=== PATIENT | female | born 1960 | race Caucasian/White ===

== ENCOUNTER 2016-09-13 14:28 | Emergency (ER) | payer MEDICARE, MEDICAID ==
[2016-09-13] MEDS ORDERED: IPRATROPIUM/ALBUTEROL 0.5-2.5 MG/3 ML AMPUL NEB ONE (16:06)
--- NOTE | 2016-09-13 16:06 | ER Document Report ---
ED General - General Chief Complaint: Chest Pain Stated Complaint: CHEST PAIN, RIGHT ARM PAIN Mode of Arrival: Ambulatory Information source: Patient Notes: 56-year-old female history of COPD presents with complaints of chest pain shortness breath while she was working outside in 90 weather. Patient notes it was tender on the right side under her right armpit. Patient symptoms resolved when she was in her conditioning. Denies that she has shortness breath when she ambulates. Denies any fevers or chills TRAVEL OUTSIDE OF THE [place] IN LAST 30 DAYS: No COUNTRY TRAVELED TO/FROM: [facility] Onset: Just prior to arrival Onset/Duration: Sudden Quality of pain: Pressure Severity: Mild Pain Level: 1 Associated symptoms: Chest pain, Shortness of breath Exacerbated by: Denies Relieved by: Denies Similar symptoms previously: Yes Recently seen / treated by doctor: Yes - Related Data Allergies/Adverse Reactions: codeine [Codeine] Allergy (Severe, Verified 09/13/16 15:58) Facial/airway swelling, SOB, rash Sulfa (Sulfonamide Antibiotics) Allergy (Severe, Verified 09/13/16 15:58) Facial/airway swelling, SOB, rash hydrocodone [Hydrocodone] Allergy (Verified 09/13/16 15:58) oxycodone [Oxycodone] Allergy (Verified 09/13/16 15:58) Past Medical History - Social History Smoking Status: Current Every Day Smoker Cigarette use (# per day): Yes Chew tobacco use (# tins/day): No Smoking Education Provided: No Family History: Thyroid Disfunction - Mother Patient has suicidal ideation: No Patient has homicidal ideation: No - Past Medical History Cardiac Medical History: Reports: Hx Congestive Heart Failure - hospitalized x 2 (Mar 2011 & May 2011), Hx Hypertension Denies: Hx Atrial Fibrillation, Hx Coronary Artery Disease, Hx Heart Attack, Hx Hypercholesterolemia, Hx Peripheral Vascular Disease, Hx Pulmonary Embolism, Hx Heart Murmur Pulmonary Medical History: Reports: Hx COPD, Hx Pneumonia - hospitalized x 2, Hx Sleep Apnea Denies: Hx Asthma, Hx Bronchitis, Hx Respiratory Failure, Hx Tuberculosis Neurological Medical History: Reports: Hx Seizures - prior to cerebral aneurysm clipping only. Denies: Hx Cerebrovascular Accident Endocrine Medical History: Reports: Hx Hypothyroidism. Denies: Hx Graves' Disease, Hx Hyperthyroidism Renal/ Medical History: Reports: Hx Kidney Stones - "passed" x 3-4 renal calculi (2006). Denies: Hx End Stage Renal Disease, Hx Ovarian Cysts, Hx Peritoneal Dialysis, Hx Pelvic Inflammatory Disease Malignancy Medical History: Denies: Hx Breast Cancer, Hx Cervical Cancer, Hx Leukemia, Hx Lung Cancer, Hx Ovarian Cancer GI Medical History: Reports: Hx Gastroesophageal Reflux Disease. Denies: Hx Crohn's Disease, Hx Hiatal Hernia, Hx Irritable Bowel, Hx Liver Failure, Hx Ulcer Musculoskeltal Medical History: Reports Hx Arthritis, Denies Hx Fibromyalgia, Denies Hx Multiple Sclerosis, Denies Hx Muscular Dystrophy Psychiatric Medical History: Reports: Hx Bipolar Disorder, Hx Depression Denies: Hx Dementia, Hx Post Traumatic Stress Disorder, Hx Schizophrenia Traumatic Medical History: Reports: Hx Fractures - LEFT wrist Infectious Medical History: Denies: Hx HIV Past Surgical History: Reports: Hx Appendectomy - incidental with open cholecystectomy 1986, Hx Cardiac Catheterization, Hx Section - 2001, Hx Cholecystectomy - open 1986, Hx Hysterectomy - 2001, Hx Neurologic Surgery, Hx Orthopedic Surgery - rigth knee replacement. Denies: Hx Bowel Surgery, Hx Colostomy, Hx Coronary Artery Bypass Graft, Hx Gastric Bypass Surgery, Hx Herniorrhaphy, Hx Mastectomy, Hx Pacemaker, Hx Tonsillectomy, Hx Tubal Ligation - Immunizations Hx Diphtheria, Pertussis, Tetanus Vaccination: Yes Review of Systems - Review of Systems Notes: REVIEW OF SYSTEMS: CONSTITUTIONAL : Denies fever, chills, or sweats. Denies recent illness. EENT: Denies eye, ear, throat, or mouth pain or symptoms. Denies nasal or sinus congestion or discharge. Denies throat, tongue, or mouth swelling or difficulty swallowing. CARDIOVASCULAR: Admits to right-sided chest pain RESPIRATORY: Admits shortness of breath GASTROINTESTINAL: Denies abdominal pain or distention. Denies nausea, vomiting , or diarrhea. Denies blood in vomitus, stools, or per rectum. Denies black, tarry stools. Denies constipation. GENITOURINARY: Denies difficulty urinating, painful urination, burning, frequency, blood in urine, or discharge. FEMALE GENITOURINARY: Denies vaginal bleeding, heavy or abnormal periods, irregular periods. Denies vaginal discharge or odor. MUSCULOSKELETAL: Denies back or neck pain or stiffness. Denies joint pain or swelling. SKIN: Denies rash, lesions or sores. HEMATOLOGIC : Denies easy bruising or bleeding. LYMPHATIC: Denies swollen, enlarged glands. NEUROLOGICAL: Denies confusion or altered mental status. Denies passing out or loss of consciousness. Denies dizziness or lightheadedness. Denies headache. Denies weakness or paralysis or loss of use of either side. Denies problems with gait or speech. Denies sensory loss, numbness, or tingling. Denies seizures. PSYCHIATRIC: Denies anxiety or stress. Denies depression, suicidal ideation, or homicidal ideation. ALL OTHER SYSTEMS REVIEWED AND NEGATIVE. Dictation was performed using [employer] voice recognition software PHYSICAL EXAMINATION: GENERAL: Well-appearing, well-nourished and in no acute distress. HEAD: Atraumatic, normocephalic. EYES: Pupils equal round and reactive to light, extraocular movements intact, conjunctiva are normal. ENT: Nares patent, oropharynx clear without exudates. Moist mucous membranes. NECK: Normal range of motion, supple without lymphadenopathy LUNGS: Faint wheezing on the right upper lobe HEART: Regular rate and rhythm without murmurs ABDOMEN: Soft, nontender, nondistended abdomen. No guarding, no rebound. No masses appreciated. Female : deferred Musculoskeletal: Normal range of motion, no pitting or edema. No cyanosis. NEUROLOGICAL: Cranial nerves grossly intact. Normal speech, normal gait. Normal sensory, motor exams PSYCH: Normal mood, normal affect. SKIN: Warm, Dry, normal turgor, no rashes or lesions noted. Physical Exam - Vital signs Vitals: Temp Pulse Resp BP Pulse Ox 98.3 F 104 H 22 H 126/87 H 92 09/13/16 14:34 09/13/16 14:34 09/13/16 14:34 09/13/16 14:34 09/13/16 14:34 Course - Re-evaluation Re-evalutation: 09/13/16 16:05 I do not expect any life-threatening issues, appears to be COPD related, patient is satting 95% on room air even though it is documented that it's 92%. Patient will be given breathing treatment will be ambulated to see her pulse ox at that time. 09/13/16 17:05 Patient ambulated after breathing treatments satting between 94-96% 09/13/16 17:30 Cardiac enzymes are negative patient otherwise looks well, I do not believe this is cardiac given that it only occurs in the heat After performing a Medical Screening Examination, I estimate there is LOW risk for RUPTURED ESOPHAGUS, PNEUMOTHORAX, PULMONARY EMBOLISM, ACUTE CORONARY SYNDROME, OR THORACIC AORTIC DISSECTION, thus I consider the discharge disposition reasonable. I have reevaluated this patient multiple times and no significant life threatening changes are noted. The patient and I have discussed the diagnosis and risks, and we agree with discharging home with close follow-up. We also discussed returning to the Emergency Department immediately if new or worsening symptoms occur. We have discussed the symptoms which are most concerning (e.g., bloody sputum, worsening pain or shortness of breath) that necessitate immediate return. - Vital Signs Vital signs: Temp Pulse Resp BP Pulse Ox 98.3 F 104 H 22 H 126/87 H 92 09/13/16 14:34 09/13/16 14:34 09/13/16 14:34 09/13/16 14:34 09/13/16 14:34 - Laboratory Result Diagrams: 09/13/16 16:10 09/13/16 16:10 Laboratory results interpreted by me: 09/13/16 16:10 BUN 21 H - Diagnostic Test Radiology reviewed: Image reviewed, Reports reviewed Discharge - Discharge Clinical Impression: Chronic obstructive pulmonary disease (COPD) Qualifiers: COPD type: unspecified COPD Qualified Code(s): J44.9 - Chronic obstructive pulmonary disease, unspecified Disposition: HOME, SELF-CARE Instructions: Chest Pain of Unclear Cause ([facility]) Additional Instructions: Follow up with your physician tomorrow for further care or return to the ED IMMEDIATELY if symptoms worsen or new concerns occur. If you cannot afford to follow up with your primary care physician a list of low cost clinics have been provided at the end of your discharge papers as well.
[2016-09-13] MEDS ORDERED: PREDNISONE 20 MG TABLET PO ONE (16:25)
[2016-09-13 16:40] LABS: ABSOLUTE BASOPHILS # (AUTO) 0.1 10^3/uL (0.0-0.2); ABSOLUTE EOSINOPHILS # (AUTO) 0.4 10^3/uL (0.0-0.6); ABSOLUTE LYMPHOCYTES (AUTO) 2.7 10^3/uL (0.5-4.7); ABSOLUTE MONOCYTES (AUTO) 0.7 10^3/uL (0.1-1.4); ABSOLUTE NEUT (AUTO) 5.7 10^3/uL (1.7-8.2); BASOPHILS % (AUTO) 0.7 % (0-2); EOSINOPHILS % (AUTO) 3.9 % (0-6); HEMATOCRIT 41.1 % (36.0-47.0); HEMOGLOBIN 13.7 g/dL (12.0-15.5); MEAN CORPUSCULAR HGB CONC 33.4 g/dL (32.0-36.0); MEAN CORPUSCULAR VOLUME 90 fl (80-97); MONOCYTES % (AUTO) 7.2 % (3-13); RED BLOOD COUNT 4.57 10^6/uL (3.72-5.28); RED CELL DISTRIBUTION WIDTH 12.6 % (11.5-14.0); SEGMENTED NEUTROPHILS % (AUTO) 60.2 % (42-78); WHITE BLOOD COUNT 9.5 10^3/uL (4.0-10.5)
[2016-09-13 16:54] LABS: ALANINE AMINOTRANSFERASE 31 U/L (9-52); ALBUMIN 4.6 g/dL (3.5-5.0); ALKALINE PHOSPHATASE 89 U/L (38-126); ANION GAP 15 (5-19); ASPARTATE AMINO TRANSFERASE 24 U/L (14-36); BILIRUBIN,DIRECT 0.4 mg/dL (0.0-0.4); BILIRUBIN,TOTAL 0.7 mg/dL (0.2-1.3); BLOOD UREA NITROGEN 21 mg/dL (7-20); CALCIUM 9.8 mg/dL (8.4-10.2); CARBON DIOXIDE 25 mmol/L (22-30); CHLORIDE 103 mmol/L (98-107); CREATINE KINASE 53 U/L (30-135); CREATININE RESULT 0.96 mg/dL (0.52-1.25); GLUCOSE 91 mg/dL (75-110); POTASSIUM 4.2 mmol/L (3.6-5.0); SODIUM 142.7 mmol/L (137-145); TOTAL PROTEIN 8.2 g/dL (6.3-8.2)
[2016-09-13 17:06] LABS: CREATINE KINASE MB 0.43 ng/mL (<4.55)
[2016-09-13 17:08] LABS: TROPONIN I < 0.012 ng/mL
[2016-09-13 17:38] VITALS: BP 119/85
--- NOTE | 2016-09-14 10:21 | EKG REPORT ---
SEVERITY:- ABNORMAL ECG - SINUS RHYTHM BORDERLINE INFERIOR Q WAVES NONSPECIFIC T ABNORMALITIES, DIFFUSE LEADS : Confirmed by: Pranav Roberts 14-Sep-2016 10:21:06
== END 2016-09-13 17:39 | disposition home or self-care (01) ==
LOC: ER 14:28
DX: J44.9 Chronic obstructive pulmonary disease, unspecified (principal); R07.9 Chest pain, unspecified; M79.601 Pain in right arm; F17.210 Nicotine dependence, cigarettes, uncomplicated
CPT/HCPCS: 93005; 94640; 99285; 36415; 82553; 82550; 85025; 80053; 84484; 71020; 93010; A9270 ×2; J7512; J7620

== ENCOUNTER 2017-03-29 16:31 | Emergency (ER) | payer MEDICARE, MEDICAID ==
--- NOTE | 2017-03-29 18:37 | ER Document Report ---
ED Headache - General Chief Complaint: Headache Stated Complaint: HEADACHE Time Seen by Provider: 03/29/17 18:37 Notes: The patient is a 56-year-old female, past medical history frequent headaches, presents with several weeks of her usual headache is worsening over the past 2 days. She took ibuprofen with some relief of her headaches. Patient also was scratched in her hands by her puppy is feeling some tingling at the site, but denies fevers, redness, open wounds, chest pain, shortness of breath, blurry vision, focal weakness, numbness, tingling, ataxia or abdominal pain. TRAVEL OUTSIDE OF THE [place] IN LAST 30 DAYS: No - Related Data Allergies/Adverse Reactions: codeine [Codeine] Allergy (Severe, Verified 03/29/17 17:47) Facial/airway swelling, SOB, rash Sulfa (Sulfonamide Antibiotics) Allergy (Severe, Verified 03/29/17 17:47) Facial/airway swelling, SOB, rash hydrocodone [Hydrocodone] Allergy (Verified 03/29/17 17:47) oxycodone [Oxycodone] Allergy (Verified 03/29/17 17:47) Past Medical History - General Information source: Patient - Social History Smoking Status: Unknown if Ever Smoked Chew tobacco use (# tins/day): No Frequency of alcohol use: None Drug Abuse: None Family History: Thyroid Disfunction - Mother Patient has suicidal ideation: No Patient has homicidal ideation: No - Past Medical History Cardiac Medical History: Reports: Hx Congestive Heart Failure - hospitalized x 2 (Mar 2011 & May 2011), Hx Hypertension Denies: Hx Atrial Fibrillation, Hx Coronary Artery Disease, Hx Heart Attack, Hx Hypercholesterolemia, Hx Peripheral Vascular Disease, Hx Pulmonary Embolism, Hx Heart Murmur Pulmonary Medical History: Reports: Hx COPD, Hx Pneumonia - hospitalized x 2, Hx Sleep Apnea Denies: Hx Asthma, Hx Bronchitis, Hx Respiratory Failure, Hx Tuberculosis Neurological Medical History: Reports: Hx Seizures - prior to cerebral aneurysm clipping only. Denies: Hx Cerebrovascular Accident Endocrine Medical History: Reports: Hx Hypothyroidism. Denies: Hx Graves' Disease, Hx Hyperthyroidism Renal/ Medical History: Reports: Hx Kidney Stones - "passed" x 3-4 renal calculi (2006). Denies: Hx End Stage Renal Disease, Hx Ovarian Cysts, Hx Peritoneal Dialysis, Hx Pelvic Inflammatory Disease Malignancy Medical History: Denies: Hx Breast Cancer, Hx Cervical Cancer, Hx Leukemia, Hx Lung Cancer, Hx Ovarian Cancer GI Medical History: Reports: Hx Gastroesophageal Reflux Disease. Denies: Hx Crohn's Disease, Hx Hiatal Hernia, Hx Irritable Bowel, Hx Liver Failure, Hx Pancreatitis, Hx Ulcer Musculoskeltal Medical History: Reports Hx Arthritis, Denies Hx Fibromyalgia, Denies Hx Multiple Sclerosis, Denies Hx Muscular Dystrophy Psychiatric Medical History: Reports: Hx Bipolar Disorder, Hx Depression Denies: Hx Dementia, Hx Post Traumatic Stress Disorder, Hx Schizophrenia Traumatic Medical History: Reports: Hx Fractures - LEFT wrist Infectious Medical History: Denies: Hx HIV Past Surgical History: Reports: Hx Appendectomy - incidental with open cholecystectomy 1986, Hx Cardiac Catheterization, Hx Section - 2001, Hx Cholecystectomy - open 1986, Hx Hysterectomy, Hx Neurologic Surgery, Hx Orthopedic Surgery - rigth knee replacement. Denies: Hx Bowel Surgery, Hx Colostomy, Hx Coronary Artery Bypass Graft, Hx Gastric Bypass Surgery, Hx Herniorrhaphy, Hx Mastectomy, Hx Pacemaker, Hx Tonsillectomy, Hx Tubal Ligation - Immunizations Hx Diphtheria, Pertussis, Tetanus Vaccination: Yes Review of Systems - Review of Systems Notes: REVIEW OF SYSTEMS: CONSTITUTIONAL: -fevers, -chills EENT: -eye pain, -difficulty swallowing, -nasal congestion CARDIOVASCULAR:-chest pain, -syncope. RESPIRATORY: -cough, -SOB GASTROINTESTINAL: -abdominal pain, -nausea, -vomiting, -diarrhea GENITOURINARY: -dysuria, -hematuria MUSCULOSKELETAL: -back pain, -neck pain SKIN: -rash or skin lesions. HEMATOLOGIC: -easy bruising or bleeding. LYMPHATIC: -swollen, enlarged glands. NEUROLOGICAL: -altered mental status or loss of consciousness, +headache PSYCHIATRIC: -anxiety, -depression. ALL OTHER SYSTEMS REVIEWED AND NEGATIVE. Physical Exam - Vital signs Vitals: Temp Pulse Resp BP Pulse Ox 98.0 F 72 16 144/110 H 94 03/29/17 16:34 03/29/17 16:34 03/29/17 16:34 03/29/17 16:34 03/29/17 16:34 - Notes Notes: PHYSICAL EXAMINATION: GENERAL: Well-appearing, well-nourished and in no acute distress. HEAD: Atraumatic, normocephalic. EYES: Pupils equal round and reactive to light, extraocular movements intact, sclera anicteric, conjunctiva are normal. ENT: nares patent, oropharynx clear without exudates. Moist mucous membranes. NECK: Normal range of motion, supple without lymphadenopathy LUNGS: Breath sounds clear to auscultation bilaterally and equal. No wheezes rales or rhonchi. HEART: Regular rate and rhythm without murmurs ABDOMEN: Soft, nontender, normoactive bowel sounds. No guarding, no rebound. No masses appreciated. EXTREMITIES: Normal range of motion, no pitting or edema. No cyanosis. NEUROLOGICAL: Cranial nerves grossly intact. Normal speech, normal gait. Normal sensory and motor exams. PSYCH: Normal mood, normal affect. SKIN: Warm, Dry, normal turgor, no rashes or lesions noted. Course - Re-evaluation Re-evalutation: Patient's headache is exactly the same as her prior ones. Do not suspect meningitis, ICH or SAH at this time. We will treat her with a headache cocktail and reassess. She has no signs of infection of her hands where she was scratched and there are no focal neuro deficits. 03/29/17 20:08 Pt's headache completely resolved after headache cocktail and her repeat neuro exam is completely normal. Instructed her to follow-up with her primary care physician and take anti-inflammatories to help prevent a rebound headache. Given strict return precautions and she understands. - Vital Signs Vital signs: Temp Pulse Resp BP Pulse Ox 98.0 F 72 16 144/110 H 94 03/29/17 16:34 03/29/17 16:34 03/29/17 16:34 03/29/17 16:34 03/29/17 16:34 Discharge - Discharge Clinical Impression: Headache Qualifiers: Headache type: unspecified Headache chronicity pattern: chronic headache Intractability: not intractable Qualified Code(s): R51 - Headache Condition: Stable Disposition: HOME, SELF-CARE Additional Instructions: HEADACHE: The physician does not feel that the headache you are experiencing has a serious underlying cause. Most headaches are due to emotional stress, with resultant muscle tension (tension headache). Occasionally, headaches are secondary to changes in the blood vessels of the scalp (vascular headache and migraine headache). Sometimes, a headache is the first symptom of another developing illness, such as a viral infection. You have no evidence of stroke, bleeding, meningitis, or other serious cause of your headache. The treatment of headaches varies with the severity and cause of the pain. Not all headaches need pain shots. In fact, there is evidence that using narcotics for headaches may make them worse in the long run. The physician will determine the therapy that's in your best interest. If you develop a fever, if the headache is different from any you've previously experienced, or if the headache progressively worsens, then call your physician at once or go to the emergency room. REGLAN (METOCLOPRAMIDE): Reglan has been prescribed. This medicine affects the stomach and intestines. It can be used to treat nausea and vomiting, to prevent reflux of stomach acid up into the esophagus, or to increase the contractions of the stomach and intestines. It is often prescribed for esophagitis, and for paralysis of the stomach in diabetics. Reglan can cause either mild restlessness or drowsiness. You should contact the doctor at once if you become extremely restless, anxious, or cannot sleep, or if you develop uncontrollable motions of the lips, tongue, or jaw. Do not take alcohol with this medicine. Do not drive or operate machinery until you have been taking this medicine long enough to know how it affects you. Call the doctor if you develop abdominal pains, lightheadedness, black stool, or blood in the stool or vomitus. USE OF DIPHENHYDRAMINE: Diphenhydramine (Benadryl) is an antihistamine and has been recommended to help treat your headache and to prevent side effects of other medications used to treat headaches. The medication can be repeated four times daily. Age Elixir (12.5 mg/tsp) 25 mg pill adult 1-2 tabs Antihistamines may cause drowsiness, especially with the first dose. Do not operate machinery or drive while under the effects of the medication. Do not combine the medication with alcohol, or with any other medication without talking to your doctor. ANTINAUSEA MEDICATION: You have been given a medication to suppress nausea and vomiting. This type of medication can be given as a shot, pill, or suppository. It will usually last for many hours. Pills and shots usually last six to eight hours, suppositories last about 12 hours. For the typical illness, only one or two doses of the medication may be necessary. Mild lightheadedness may occur. This type of medicine can cause drowsiness. Do not drive or operate dangerous machinery while under its influence. Do not mix with alcohol. See your doctor at once if you have muscle spasms or tightness, or uncontrollable motions (particularly of the neck, mouth, or jaw). Persistent vomiting or severe lightheadedness should also be evaluated by the physician. TORADOL INJECTION: You have been given an injection of ketorolac tromethamine (Toradol). This is an excellent, safe drug for pain control. It also has potent antiinflammatory action. You should have significant pain relief within about one hour. Toradol is not addicting and is non-sedating. It does not interfere with driving or work. Call or return if you develop itching, hives, shortness of breath, or rash. FOLLOW-UP CARE: If you have been referred to a physician for follow-up care, call the physician s office for an appointment as you were instructed or within the next two days. If you experience worsening or a significant change in your symptoms, notify the physician immediately or return to the Emergency Department at any time for re-evaluation. Forms: Elevated Blood Pressure Referrals: ERMIAS LEY PA-C [Primary Care Provider] - Follow up as needed
[2017-03-29] MEDS ORDERED: METOCLOPRAMIDE HCL INJ/PF 10 MG/2 ML SDV IV ONE (18:46)
[2017-03-29] MEDS ORDERED: NORMAL SALINE 1000 ML 1,000 ML IV ONE (18:46)
[2017-03-29] MEDS ORDERED: DIPHENHYDRAMINE HCL 50 MG/ML VIAL IV ONE (18:46)
[2017-03-29] MEDS ORDERED: KETOROLAC TROMETHAMINE INJ/PF 30 MG/1 ML SDV IV ONE (18:46)
[2017-03-29 20:13] VITALS: BP 131/77
== END 2017-03-29 20:10 | disposition home or self-care (01) ==
LOC: ER 16:31
DX: R51 Headache (principal); R20.2 Paresthesia of skin; Z88.5 Allergy status to narcotic agent; Z88.2 Allergy status to sulfonamides; J44.9 Chronic obstructive pulmonary disease, unspecified
CPT/HCPCS: 99283; 96374; 96375; J1200; J1885; J2765; J7030

== ENCOUNTER 2017-08-04 11:43 | Emergency (ER) | payer MEDICARE, MEDICAID ==
--- NOTE | 2017-08-04 12:43 | ER Document Report ---
ED Hip Pain/Injury - General Chief Complaint: Hip Pain Stated Complaint: LEFT KNEE PAIN Time Seen by Provider: 08/04/17 12:17 Mode of Arrival: Wheelchair Information source: Patient Notes: 57-year-old female presents to ED for complaint of left hip pain. She states she has chronic left hip and knee pain and is been going to physical therapy. She states that she stepped wrong on her foot yesterday and the pain has become back is worse than when she has been going to therapy. She went to therapy yesterday but is not able to go to day she can only go twice a week. Gave to the ER to see if she reinjured her hip. TRAVEL OUTSIDE OF THE [place] IN LAST 30 DAYS: No COUNTRY TRAVELED TO/FROM: [facility] Patient complains to provider of: Pain, Hip, Thigh Occurred: Yesterday - She has chronic pain Where: Home Onset/Duration: Persistent Quality of pain: Sharp, Throbbing Severity: Severe Pain Level: 5 Context: Other - Stepped wrong Symptoms prior to fall: None Symptoms since fall: None Skin Color: Normal Rotation of extremity: None Pain with palpation of the pelvis: Yes Associated Symptoms: None Other injuries: LLE - Related Data Allergies/Adverse Reactions: codeine [Codeine] Allergy (Severe, Verified 08/04/17 12:27) Facial/airway swelling, SOB, rash Sulfa (Sulfonamide Antibiotics) Allergy (Severe, Verified 08/04/17 12:27) Facial/airway swelling, SOB, rash hydrocodone [Hydrocodone] Allergy (Verified 08/04/17 12:27) oxycodone [Oxycodone] Allergy (Verified 08/04/17 12:27) Past Medical History - General Information source: Patient - Social History Smoking Status: Never Smoker Cigarette use (# per day): No Chew tobacco use (# tins/day): No Smoking Education Provided: No Frequency of alcohol use: None Drug Abuse: None Lives with: Family Family History: Thyroid Disfunction - Mother Patient has suicidal ideation: No Patient has homicidal ideation: No - Past Medical History Cardiac Medical History: Reports: Hx Congestive Heart Failure - hospitalized x 2 (Mar 2011 & May 2011), Hx Hypertension Pulmonary Medical History: Reports: Hx COPD, Hx Pneumonia - hospitalized x 2, Hx Sleep Apnea EENT Medical History: Reports: None Neurological Medical History: Reports: Hx Migraine, Hx Seizures - prior to cerebral aneurysm clipping only Endocrine Medical History: Reports: Hx Hypothyroidism Renal/ Medical History: Reports: Hx Kidney Stones - "passed" x 3-4 renal calculi (2006) Malignancy Medical History: Reports: None GI Medical History: Reports: Hx Gastritis, Hx Gastroesophageal Reflux Disease, Hx Irritable Bowel, Hx Colonoscopy, Hx Endoscopy Musculoskeltal Medical History: Reports Hx Arthritis, Reports Hx Musculoskeletal Deformity, Reports Hx Musculoskeletal Trauma Skin Medical History: Reports None Psychiatric Medical History: Reports: Hx Anxiety, Hx Attention Deficit Hyperactivity Disorder, Hx Bipolar Disorder, Hx Depression Traumatic Medical History: Reports: Hx Fractures - LEFT wrist Infectious Medical History: Reports: None Past Surgical History: Reports: Hx Appendectomy - incidental with open cholecystectomy 1986, Hx Cardiac Catheterization, Hx Section - 2001, Hx Cholecystectomy - open 1986, Hx Hysterectomy, Hx Neurologic Surgery, Hx Orthopedic Surgery - rigth knee replacement - Immunizations Hx Diphtheria, Pertussis, Tetanus Vaccination: Yes Review of Systems - Review of Systems Constitutional: No symptoms reported EENT: No symptoms reported Cardiovascular: No symptoms reported Respiratory: No symptoms reported Gastrointestinal: No symptoms reported Genitourinary: No symptoms reported Female Genitourinary: No symptoms reported Musculoskeletal: Joint pain - left hip and thigh pain, Joint swelling - Left hip and thigh pain Skin: No symptoms reported Hematologic/Lymphatic: No symptoms reported Neurological/Psychological: No symptoms reported -: Yes All other systems reviewed and negative Physical Exam - Vital signs Vitals: Temp Pulse Resp BP Pulse Ox 97.8 F 73 16 128/93 H 98 08/04/17 11:47 08/04/17 11:47 08/04/17 11:47 08/04/17 11:47 08/04/17 11:47 Interpretation: Normal - General General appearance: Appears well, Alert - HEENT Head: Normocephalic, Atraumatic Eyes: Normal Pupils: PERRL - Respiratory Respiratory status: No respiratory distress Chest status: Nontender Breath sounds: Normal Chest palpation: Normal - Cardiovascular Rhythm: Regular Heart sounds: Normal auscultation Murmur: No - Abdominal Inspection: Normal Distension: No distension Bowel sounds: Normal Tenderness: Nontender Organomegaly: No organomegaly - Back Back: Normal, Nontender - Extremities General upper extremity: Normal inspection, Nontender, Normal color, Normal ROM , Normal temperature General lower extremity: Normal color, Normal temperature. No: Hubert's sign Hip: Tender, Pain with ROM, Unable to bear weight. No: Abrasion, Deformity, Dislocation, Ecchymosis, Instability, Laceration - Neurological Neuro grossly intact: Yes Cognition: Normal Orientation: AAOx4 Audrey Coma Scale Eye Opening: Spontaneous Audrey Coma Scale Verbal: Oriented Audrey Coma Scale Motor: Obeys Commands Porter Coma Scale Total: 15 Speech: Normal Motor strength normal: LUE, RUE, LLE, RLE Sensory: Normal - Psychological Associated symptoms: Normal affect, Normal mood - Skin Skin Temperature: Warm Skin Moisture: Dry Skin Color: Normal Course - Re-evaluation Re-evalutation: 08/04/17 22:10 X-ray results showed a degenerative disc disease. Otherwise x-ray was negative. Written report given to patient to follow-up with primary doctor. Patient was treated with Toradol Decadron and Flexeril in the emergency room for her pain and discomfort. Patient was discharged home with instructions to follow-up with her primary doctor. - Vital Signs Vital signs: Temp Pulse Resp BP Pulse Ox 97.8 F 74 16 130/98 H 97 08/04/17 11:47 08/04/17 14:36 08/04/17 11:47 08/04/17 14:36 08/04/17 14:36 - Diagnostic Test Radiology reviewed: Image reviewed, Reports reviewed Discharge - Discharge Clinical Impression: Hip pain, left Condition: Stable Disposition: HOME, SELF-CARE Additional Instructions: LOW BACK PAIN: Three out of every four people will have an episode of disabling back pain during their lifetime. Most commonly the pain is due to straining of the muscles and ligaments in the low back. Usual treatment includes: (1) Rest on a firm surface. Avoid lying on your stomach. (2) Ice pack the painful area. After a few days, gentle heat may be used intermittently to relax the area, or ice packs can be continued. (3) Medication may be needed -- muscle relaxers and antiinflammatory medicines are commonly used. (4) As the back improves, exercises are prescribed to strengthen the back and abdominal muscles. Your doctor will advise you on the proper care for your back at each stage in your recovery. You may be better in a few days -- or healing may take several weeks. If new symptoms of a "herniated disc" (radiation of pain, numbness, or tingling down the back of the leg or weakness in the leg) occur, you should be re-examined. Further testing may be necessary. You also seen for chroni left hip pain. Your x-ray is negative. There is some moderate degenerative disc disease in your L-spine. You have been treated with Toradol, Decadron, and Flexeril in the emergency room. Toradol as an anti- inflammatory Decadron is a steroid and Flexeril as a muscle relaxer. MUSCLE RELAXERS: Muscle relaxing medications are usually prescribed for acute muscle spasm or injury to the neck and back. They are often combined with antiinflammatory pain medication for increased relief. You may stop the muscle relaxer when the pain and stiffness have improved. Start the medication again if spasms recur. Muscle relaxers may cause drowsiness, especially with the first dose. Do not operate machinery or drive while under the effects of the medication. Most muscle relaxers last up to 24 hours. Do not combine the medication with alcohol. ICE PACKS: Apply ice packs frequently against the painful area. Many different schedules are recommended, such as "20 minutes on, 20 minutes off" or "one hour ice, two hours rest." If you need to work, you may need to go longer between ice treatments. You should plan to have the area ice packed AT LEAST one fourth of the time. The ice should be applied over the wrap, tape, or splint, or over a layer of cloth -- not directly against the skin. Some ice bags have a built-in cloth and can be put directly on the skin. WARM PACKS: After approximately two days, apply gentle heat (such as a heating pad or hot water bottle) for about 20 to 30 minutes about every two hours -- at least four times daily. Warmth and elevation will help you make a more rapid recovery , and will ease the pain considerably. Do not use HOT heat, and never apply heat for longer than 30 minutes. The continuous heat can invisibly damage skin and muscles -- even when no burn is seen on the surface. Damaged muscles can make you MORE sore. Toradol Injection You have been given an injection of ketorolac tromethamine (Toradol). This is an excellent, safe drug for pain control. It also has potent antiinflammatory action. You should have significant pain relief within about one hour. Toradol is not addicting and is non-sedating. It does not interfere with driving or work. Call or return if you develop itching, hives, shortness of breath, or rash. STEROID MEDICATION: You have been given an injection of medicine of the cortisone/steroid class. This medication is used to control inflammation or allergy. It is often continued as a pill for a short period of time, until the acute process subsides. There are usually no side effects from short-term use of cortisone-like medications. Some persons feel an increased sense of well-being and are not sleepy at bedtime. Long-term use of cortisone medications is best avoided, unless required for a severe condition. If your condition does not remit, or relapses after the course of corticosteroid medication, you should consult your physician. Stretching Exercises for the Back The physician has recommended that you begin stretching exercises for your back. These are often used even while the back is painful. However, you should notify the physician if the activities seem to increase your pain. PELVIC TILT: Lie flat on your back with knees bent. Tighten your stomach and buttock muscles so it flattens your lower back against the floor. Hold 10 seconds. Repeat 10 times, twice daily. KNEE RAISE: Lying on the back with knees bent, raise one knee to your chest, then the other. Hold both knees against the chest 10 seconds, then lower one knee at a time. Repeat 10 times, twice daily. PARTIAL TRUNK RAISE: Lie face down, arms at your sides. Keeping your waist on the floor, use your arms raise your chest up. Support yourself on your elbows for 30 seconds. Repeat twice daily, increasing the time to two minutes as you recover. FOLLOW-UP CARE: If you have been referred to a physician for follow-up care, call the physician s office for an appointment as you were instructed or within the next two days. If you experience worsening or a significant change in your symptoms, notify the physician immediately or return to the Emergency Department at any time for re-evaluation. Prescriptions: Cyclobenzaprine HCl [Flexeril 10 mg Tablet] 10 mg PO TIDP PRN #15 tab PRN Reason: Forms: Parent Work Note Referrals: ERMIAS LEY PA-C [Primary Care Provider] - Follow up as needed DELIA CORTÉS MD [ACTIVE STAFF] - Follow up as needed
--- NOTE | 2017-08-04 13:55 | RADIOLOGY REPORT (SQ) ---
EXAM DESCRIPTION: HIP LEFT AP/LATERAL COMPLETED DATE/TIME: 08/04/2017 1:26 pm REASON FOR STUDY: pain unable to ambulate COMPARISON: None. NUMBER OF VIEWS: Two views. TECHNIQUE: AP pelvis and additional frog-leg view of the left hip. LIMITATIONS: None. FINDINGS: MINERALIZATION: Normal. LEFT HIP: No fracture or dislocation. No worrisome bone lesions. No contour deformity. No joint spa ce narrowing. RIGHT HIP: No fracture or dislocation. No worrisome bone lesions. PUBIS AND ISCHIUM: No fracture. PELVIS: No fracture. SACRUM: No fracture or dislocation. No worrisome bone lesions. LOWER LUMBAR SPINE: Moderate to severe disc degeneration L4-L5 SOFT TISSUES: No findings. OTHER: No other significant finding. IMPRESSION: No significant hip pathology. Moderate disc degeneration L4-L5. TECHNICAL DOCUMENTATION: JOB ID: [id number] [employer]- All Rights Reserved Reading location - IP/workstation name: [email or web address]
[2017-08-04] MEDS ORDERED: DEXAMETHASONE SOD PHOS INJ 10 MG/1 ML VIAL IM ONE (14:15)
[2017-08-04] MEDS ORDERED: KETOROLAC TROMETHAMINE 60 MG/2 ML SDV IM ONE (14:15)
[2017-08-04] MEDS ORDERED: CYCLOBENZAPRINE HCL 10 MG TABLET PO ONE (14:15)
[2017-08-04 14:38] VITALS: BP 130/98
== END 2017-08-04 14:39 | disposition home or self-care (01) ==
LOC: ER 11:43
DX: G89.29 Other chronic pain (principal); M25.552 Pain in left hip; M25.562 Pain in left knee; M51.36 Other intervertebral disc degeneration, lumbar region; I10 Essential (primary) hypertension; J44.9 Chronic obstructive pulmonary disease, unspecified; Z88.5 Allergy status to narcotic agent; Z88.2 Allergy status to sulfonamides
CPT/HCPCS: 99283; 96372; A9270; J1885; J1100

== ENCOUNTER 2017-08-08 09:32 | Emergency (ER) | payer MEDICARE, MEDICAID ==
[2017-08-08] MEDS ORDERED: KETOROLAC TROMETHAMINE 60 MG/2 ML SDV IM ONE (09:52)
--- NOTE | 2017-08-08 09:52 | ER Document Report ---
ED General Pain - General Mode of Arrival: Wheelchair Information source: Patient TRAVEL OUTSIDE OF THE [place] IN LAST 30 DAYS: No COUNTRY TRAVELED TO/FROM: [facility] Patient complains to provider of: Left Buttock and leg pain Onset: Other - 3 weeks ago Context: Other - see notes above Associated symptoms: Other - see notes above Exacerbated by: Walking - General Chief Complaint: Low Back Pain Stated Complaint: BACK PAIN Time Seen by Provider: 08/08/17 09:36 Notes: 57 year old female with history of hypertension presents to the ED complaining of left buttock pain that radiates down to her left knee that started 3 weeks ago. Patient was working in her yard and felt a pinch to the left buttock when going to pull something. Patient reports that she is having difficulty walking secondary to the pain. Patient was seen in the ED 3 days ago and states the pain has worsened since then. Patient has tried exercises, heat and ice packs, and Flexeril to no relief. Patient additionally complains of a burning sensation to the left buttock that radiates down to the left medial knee. Patient denies difficulty with urination or bowel movements. PCP: Pancho Richards (LOPEZAMI VELAZQUEZ) - Related Data Allergies/Adverse Reactions: codeine [Codeine] Allergy (Severe, Verified 08/04/17 12:27) Facial/airway swelling, SOB, rash Sulfa (Sulfonamide Antibiotics) Allergy (Severe, Verified 08/04/17 12:27) Facial/airway swelling, SOB, rash hydrocodone [Hydrocodone] Allergy (Verified 08/04/17 12:27) oxycodone [Oxycodone] Allergy (Verified 08/04/17 12:27) Past Medical History - General Information source: Patient - Social History Smoking Status: Current Every Day Smoker Family History: Thyroid Disfunction - Mother Patient has suicidal ideation: No Patient has homicidal ideation: No - Past Medical History Cardiac Medical History: Reports: Hx Congestive Heart Failure - hospitalized x 2 (Mar 2011 & May 2011), Hx Hypertension Denies: Hx Atrial Fibrillation, Hx Heart Attack, Hx Hypercholesterolemia Pulmonary Medical History: Reports: Hx COPD, Hx Pneumonia - hospitalized x 2, Hx Sleep Apnea Denies: Hx Asthma, Hx Bronchitis, Hx Tuberculosis Neurological Medical History: Reports: Hx Migraine, Hx Seizures - prior to cerebral aneurysm clipping only Endocrine Medical History: Reports: Hx Hypothyroidism Renal/ Medical History: Reports: Hx Kidney Stones - "passed" x 3-4 renal calculi (2006). Denies: Hx End Stage Renal Disease, Hx Peritoneal Dialysis GI Medical History: Reports: Hx Gastritis, Hx Gastroesophageal Reflux Disease, Hx Irritable Bowel, Hx Colonoscopy, Hx Endoscopy. Denies: Hx Hiatal Hernia, Hx Ulcer Musculoskeltal Medical History: Reports Hx Arthritis, Reports Hx Musculoskeletal Deformity, Reports Hx Musculoskeletal Trauma Psychiatric Medical History: Reports: Hx Anxiety, Hx Attention Deficit Hyperactivity Disorder, Hx Bipolar Disorder, Hx Depression Denies: Hx Schizophrenia Traumatic Medical History: Reports: Hx Fractures - LEFT wrist Past Surgical History: Reports: Hx Appendectomy - incidental with open cholecystectomy 1986, Hx Cardiac Catheterization, Hx Section - 2001, Hx Cholecystectomy - open 1986, Hx Hysterectomy, Hx Neurologic Surgery, Hx Orthopedic Surgery - rigth knee replacement. Denies: Hx Bowel Surgery, Hx Mastectomy, Hx Tonsillectomy, Hx Tubal Ligation - Immunizations Hx Diphtheria, Pertussis, Tetanus Vaccination: Yes Review of Systems - Review of Systems Constitutional: No symptoms reported EENT: No symptoms reported Cardiovascular: No symptoms reported Respiratory: No symptoms reported Gastrointestinal: No symptoms reported Genitourinary: No symptoms reported Female Genitourinary: No symptoms reported Musculoskeletal: See HPI, Other - left buttock to left knee pain Skin: No symptoms reported Hematologic/Lymphatic: No symptoms reported Neurological/Psychological: See HPI, Other - burning sensation from left buttock to left knee -: Yes All other systems reviewed and negative Physical Exam - Vital signs Vitals: Temp Pulse Resp BP Pulse Ox 97.4 F 78 18 118/80 96 08/08/17 09:53 08/08/17 09:53 08/08/17 09:53 08/08/17 09:53 08/08/17 09:53 - Notes Notes: GENERAL: Alert, interacts well. No acute distress. HEAD: Normocephalic, atraumatic. EYES: Pupils equal, round, and reactive to light. Extraocular movements intact. ENT: Oral mucosa moist, tongue midline. NECK: Full range of motion. Supple. Trachea midline. LUNGS: Clear to auscultation bilaterally, no wheezes, rales, or rhonchi. No respiratory distress. HEART: Regular rate and rhythm. No murmurs, gallops, or rubs. EXTREMITIES: Moves all 4 extremities spontaneously. No edema, radial and dorsalis pedis pulses 2/4 bilaterally. No cyanosis. Pain along the left sciatica nerve. Great toe strength intact, bilaterally. Able to raise left lower extremity with some pain. Normal lower extremity muscle strength. NEUROLOGICAL: Alert and oriented x3. Normal speech. PSYCH: Normal affect, normal mood. SKIN: Warm, dry, normal turgor. No rashes or lesions noted. (AMI LOPEZ) Course - Re-evaluation Re-evalutation: 08/08/17 10:20 No red flag symptoms, no bowel or bladder dysfunction, negative straight leg raising test, there is passive full range of motion, this is much more muscular than it is spinal nerve related, she does have evidence of muscle spasm in her gluteal muscles that are pinching on the sciatic nerve, patient will be given Robaxin and shot of Toradol here and then discharged home with Robaxin by mouth. Patient has been observed for approximately 20 minutes and is feeling better at this point. Counseled on cauda equina symptoms and will return for any of those. (ALYSSA GRIGSBY) - Vital Signs Vital signs: Temp Pulse Resp BP Pulse Ox 97.7 F 73 17 113/74 96 08/08/17 10:33 08/08/17 10:33 08/08/17 10:33 08/08/17 10:33 08/08/17 10:33 Discharge - Discharge Clinical Impression: Sciatica of left side Condition: Stable Disposition: HOME, SELF-CARE Instructions: Sciatica ([facility]) Prescriptions: Methocarbamol [Robaxin 750 mg Tablet] 750 mg PO ASDIR PRN #40 tablet PRN Reason: Referrals: ALFONSO HARDY MD [ACTIVE STAFF] - Follow up as needed Scribe Attestation: 08/08/17 12:42 I personally performed the services described in the documentation, reviewed and edited the documentation which was dictated to the scribe in my presence, and it accurately records my words and actions. (ALYSSA GRIGSBY) Scribe Documentation - Scribe Written by Scribe:: Leeroy Zavala, 08/08/2017 1048 acting as scribe for :: Juan Antonio
[2017-08-08] MEDS ORDERED: METHOCARBAMOL 750 MG TABLET PO ONE (09:53)
[2017-08-08 10:38] VITALS: BP 113/74
== END 2017-08-08 10:35 | disposition home or self-care (01) ==
LOC: ER 09:32
DX: M54.32 Sciatica, left side (principal); I10 Essential (primary) hypertension; F17.200 Nicotine dependence, unspecified, uncomplicated; J44.9 Chronic obstructive pulmonary disease, unspecified; Z88.5 Allergy status to narcotic agent; Z88.2 Allergy status to sulfonamides
CPT/HCPCS: 99283; 96372; J1885; A9270; J3490

== ENCOUNTER 2017-08-09 11:36 | Emergency (ER) | payer MEDICARE, MEDICAID ==
[2017-08-09] MEDS ORDERED: FENTANYL CITRATE INJ/PF 100 MCG/2 ML AMPUL IM ONE (11:59)
--- NOTE | 2017-08-09 12:01 | ER Document Report ---
ED Medical Screen (RME) - General Chief Complaint: Hip Pain Stated Complaint: LEFT HIP PAIN Time Seen by Provider: 08/09/17 11:52 Notes: RME DISCLOSURE I have seen this patient as part of a Rapid Medical Evaluation and, if applicable, placed any initially appropriate orders. The patient will be seen and fully evaluated, including a full history and physical exam, by a provider ( in Main ED or Fast Track) when a room becomes available. 57-year-old female seen several times in the past few days for arthralgias here again for left hip pain. She had a negative hip x-ray at 1 of her recent visits and was prescribed methocarbamol which she reports is not helping. She reports she is now not able to walk without having significant pain. Pain is worse with standing and walking. Pain is improved with minimizing movement. She denies any flash incontinence. She denies any numbness tingling. EXAM Tenderness to palpation in the left inguinal region TRAVEL OUTSIDE OF THE [place] IN LAST 30 DAYS: No COUNTRY TRAVELED TO/FROM: [place] - Related Data Allergies/Adverse Reactions: codeine [Codeine] Allergy (Severe, Verified 08/04/17 12:27) Facial/airway swelling, SOB, rash Sulfa (Sulfonamide Antibiotics) Allergy (Severe, Verified 08/04/17 12:27) Facial/airway swelling, SOB, rash hydrocodone [Hydrocodone] Allergy (Verified 08/04/17 12:27) oxycodone [Oxycodone] Allergy (Verified 08/04/17 12:27) Past Medical History - Social History Chew tobacco use (# tins/day): No Frequency of alcohol use: None Drug Abuse: None - Past Medical History Cardiac Medical History: Reports: Hx Congestive Heart Failure - hospitalized x 2 (Mar 2011 & May 2011), Hx Hypertension Denies: Hx Atrial Fibrillation, Hx Heart Attack, Hx Hypercholesterolemia Pulmonary Medical History: Reports: Hx COPD, Hx Pneumonia - hospitalized x 2, Hx Sleep Apnea Denies: Hx Asthma, Hx Bronchitis, Hx Tuberculosis Neurological Medical History: Reports: Hx Migraine, Hx Seizures - prior to cerebral aneurysm clipping only Endocrine Medical History: Reports: Hx Hypothyroidism Renal/ Medical History: Reports: Hx Kidney Stones - "passed" x 3-4 renal calculi (2006). Denies: Hx End Stage Renal Disease, Hx Peritoneal Dialysis GI Medical History: Reports: Hx Gastritis, Hx Gastroesophageal Reflux Disease, Hx Irritable Bowel, Hx Colonoscopy, Hx Endoscopy. Denies: Hx Hiatal Hernia, Hx Ulcer Musculoskeltal Medical History: Reports Hx Arthritis, Reports Hx Musculoskeletal Deformity, Reports Hx Musculoskeletal Trauma Psychiatric Medical History: Reports: Hx Anxiety, Hx Attention Deficit Hyperactivity Disorder, Hx Bipolar Disorder, Hx Depression Denies: Hx Schizophrenia Traumatic Medical History: Reports: Hx Fractures - LEFT wrist Past Surgical History: Reports: Hx Appendectomy - incidental with open cholecystectomy 1986, Hx Cardiac Catheterization, Hx Section - 2001, Hx Cholecystectomy - open 1986, Hx Hysterectomy, Hx Neurologic Surgery, Hx Orthopedic Surgery - rigth knee replacement. Denies: Hx Bowel Surgery, Hx Mastectomy, Hx Tonsillectomy, Hx Tubal Ligation - Immunizations Hx Diphtheria, Pertussis, Tetanus Vaccination: Yes
--- NOTE | 2017-08-09 12:20 | ER Document Report ---
ED General - General Chief Complaint: Hip Pain Stated Complaint: LEFT HIP PAIN Time Seen by Provider: 08/09/17 11:52 Mode of Arrival: Ambulatory Information source: Patient TRAVEL OUTSIDE OF THE [place] IN LAST 30 DAYS: No COUNTRY TRAVELED TO/FROM: [facility] Notes: 57-year-old female with a history of chronic left hip and knee pain presents today with complaints of worsening left hip pain. Patient was seen in the emergency room on August 04, x-ray of left hip was done which was negative for any fracture dislocation. went to therapy after being seen in the ER, and states after doing strengthening exercises a massaged her back and left hip which resolved her pain.states when she came home from therapy she stepped wrong onto her porch , which caused immediate pain and is activated her hip pain again, which was 3 days ago. Worse with ambulation, she feels better when she is elevating her hip. denies any recent trauma or falling. She states she was taking Flexeril but ran out of this, was given a prescription for Robaxin, which she just felt prior to coming to the emergency room today. Denies any recent trauma. Not tried any heat. He can only take ibuprofen for pain due to allergies to codeine, hydrocodone which causes her to have seizures. Reports pain is 10 out of 10, achy and throbbing. Denies fevers, chills, chest pain,palpitations, shortness of breath, dyspnea, nausea, vomiting , diarrhea, abdominal pain, hematuria,blurred vision, double vision, loss of vision, speech changes, LH, dizziness, syncope, headaches, neck pain, weakness , bowel or bladder dysfunction, saddle anesthesia, numbness or tingling in bilateral upper or lower extremities equally, muscle paralysis, weakness in bilateral upper or lower extremities equally or rash. - Related Data Allergies/Adverse Reactions: codeine [Codeine] Allergy (Severe, Verified 08/04/17 12:27) Facial/airway swelling, SOB, rash Sulfa (Sulfonamide Antibiotics) Allergy (Severe, Verified 08/04/17 12:27) Facial/airway swelling, SOB, rash hydrocodone [Hydrocodone] Allergy (Verified 08/04/17 12:27) oxycodone [Oxycodone] Allergy (Verified 08/04/17 12:27) Past Medical History - General Information source: Patient - Social History Smoking Status: Former Smoker Chew tobacco use (# tins/day): No Frequency of alcohol use: None Drug Abuse: None Family History: Thyroid Disfunction - Mother Patient has suicidal ideation: No Patient has homicidal ideation: No - Past Medical History Cardiac Medical History: Reports: Hx Congestive Heart Failure - hospitalized x 2 (Mar 2011 & May 2011), Hx Hypertension Denies: Hx Atrial Fibrillation, Hx Heart Attack, Hx Hypercholesterolemia Pulmonary Medical History: Reports: Hx COPD, Hx Pneumonia - hospitalized x 2, Hx Sleep Apnea Denies: Hx Asthma, Hx Bronchitis, Hx Tuberculosis Neurological Medical History: Reports: Hx Migraine, Hx Seizures - prior to cerebral aneurysm clipping only Endocrine Medical History: Reports: Hx Hypothyroidism Renal/ Medical History: Reports: Hx Kidney Stones - "passed" x 3-4 renal calculi (2006). Denies: Hx End Stage Renal Disease, Hx Peritoneal Dialysis GI Medical History: Reports: Hx Gastritis, Hx Gastroesophageal Reflux Disease, Hx Irritable Bowel, Hx Colonoscopy, Hx Endoscopy. Denies: Hx Hiatal Hernia, Hx Ulcer Musculoskeltal Medical History: Reports Hx Arthritis, Reports Hx Musculoskeletal Deformity, Reports Hx Musculoskeletal Trauma Psychiatric Medical History: Reports: Hx Anxiety, Hx Attention Deficit Hyperactivity Disorder, Hx Bipolar Disorder, Hx Depression Denies: Hx Schizophrenia Traumatic Medical History: Reports: Hx Fractures - LEFT wrist Past Surgical History: Reports: Hx Appendectomy - incidental with open cholecystectomy 1986, Hx Cardiac Catheterization, Hx Section - 2001, Hx Cholecystectomy - open 1986, Hx Hysterectomy, Hx Neurologic Surgery, Hx Orthopedic Surgery - rigth knee replacement. Denies: Hx Bowel Surgery, Hx Mastectomy, Hx Tonsillectomy, Hx Tubal Ligation - Immunizations Hx Diphtheria, Pertussis, Tetanus Vaccination: Yes Review of Systems - Review of Systems Notes: REVIEW OF SYSTEMS: CONSTITUTIONAL : Denies fever, chills, or sweats. Denies recent illness. EENT: Denies eye, ear, throat, or mouth pain or symptoms. Denies nasal or sinus congestion or discharge. Denies throat, tongue, or mouth swelling or difficulty swallowing. CARDIOVASCULAR: Denies chest pain. Denies palpitations or racing or irregular heart beat. Denies ankle edema. RESPIRATORY: Denies cough, cold, or chest congestion. Denies shortness of breath, difficulty breathing, or wheezing. GASTROINTESTINAL: Denies abdominal pain or distention. Denies nausea, vomiting , or diarrhea. Denies blood in vomitus, stools, or per rectum. Denies black, tarry stools. Denies constipation. GENITOURINARY: Denies difficulty urinating, painful urination, burning, frequency, blood in urine, or discharge. FEMALE GENITOURINARY: Denies vaginal bleeding, heavy or abnormal periods, irregular periods. Denies vaginal discharge or odor. MUSCULOSKELETAL: + left hip pain. Denies back or neck pain or stiffness. Denies joint pain or swelling. SKIN: Denies rash, lesions or sores. HEMATOLOGIC : Denies easy bruising or bleeding. LYMPHATIC: Denies swollen, enlarged glands. NEUROLOGICAL: Denies confusion or altered mental status. Denies passing out or loss of consciousness. Denies dizziness or lightheadedness. Denies headache. Denies weakness or paralysis or loss of use of either side. Denies problems with gait or speech. Denies sensory loss, numbness, or tingling. Denies seizures. PSYCHIATRIC: Denies anxiety or stress. Denies depression, suicidal ideation, or homicidal ideation. ALL OTHER SYSTEMS REVIEWED AND NEGATIVE. PHYSICAL EXAMINATION: GENERAL: Well-appearing, well-nourished and in no acute distress. HEAD: Atraumatic, normocephalic. EYES: Pupils equal round and reactive to light, extraocular movements intact, conjunctiva are normal. ENT: Nares patent, oropharynx clear without exudates. Moist mucous membranes. NECK: Normal range of motion, supple without lymphadenopathy LUNGS: Breath sounds clear to auscultation bilaterally and equal. No wheezes rales or rhonchi. HEART: Regular rate and rhythm without murmurs ABDOMEN: Soft, nontender, nondistended abdomen. No guarding, no rebound. No masses appreciated. Female : deferred Musculoskeletal: Normal range of motion, no pitting or edema. No cyanosis. NEUROLOGICAL: Cranial nerves grossly intact. Normal speech, normal gait. Normal sensory, motor exams. noted pain with abduction and extension of left hip at 30 degrees. dtr + 2 bilaterally and equally in BLE. full motor and sensory function. normal gait. strength is 5/ 5 bilateral lower extremities equally. Cap refill < 3 seconds. distal pulses + 2 in BLE. lower back examination wnl. No erythema, warmth to touch, deformity, crepitus or obvious asymmetry of the affected leg compared to other of hips equally. unable to bear full weight. PSYCH: Normal mood, normal affect. SKIN: Warm, Dry, normal turgor, no rashes or lesions noted. Dictation was performed using [employer] voice recognition software Physical Exam - Vital signs Vitals: Temp Pulse Resp BP Pulse Ox 97.6 F 71 18 126/74 H 95 08/09/17 11:53 08/09/17 11:53 08/09/17 11:53 08/09/17 11:53 08/09/17 11:53 Course - Re-evaluation Re-evalutation: 49-year-old female resents today for worsening exacerbation of her left hip pain. Patient denies any recent trauma. Patient remains afebrile vital signs stable. Patient that CT of left hip was negative for any pathological lesions, fractures or dislocations. The patient that she is neurologically intact with normal sensory function to bilateral lower extremities, DTRs are +2 in bilateral lower extremities, strength is 5 out of 5 in bilateral lower extremities equally, she does not need an emergent MRI while in the ER. Because the patient that this is an exacerbation of her left hip chronic pain. Advised patient to apply heat 20 minutes on 20 minutes off several times a day. To use walker for assistance with ambulation. Discussed with patient I will also prescribe a prednisone 20 mg 3 times a day for 5 days to help with inflammation. Patient is unable to take any opioids due to allergies, advised to continue taking muscle relaxer. Advised her to follow-up with precision farming specialist tomorrow. All questions and concerns answered by this provider. Return to the emergency room if any signs or symptoms become more such as but not limited to fevers, chills, chest pain, palpitations, shortness of breath, dyspnea, nausea, vomiting, diarrhea, abdominal pain, hematuria, weakness, bowel or bladder dysfunction, saddle anesthesia, numbness or tingling in bilateral upper or lower extremities equally, muscle paralysis, weakness in bilateral upper or lower extremities return to ER. All questions and concerns answered by this provider. Patient verbalized understanding of plan of care and agree with plan of care. Patient discharged home. After performing a Medical Screening Examination, I estimate there is LOW risk for EXPANDING OR RUPTURED ABDOMINAL AORTIC ANEURYSM, CAUDA EQUINA SYNDROME, EPIDURAL MASS ABSCESS OR LESION(S), OSTEOMYELITIS,PERSONAL HISTORY OF CANCER, IMMUNOSUPPERSSSION, HISTORY OF IV DRUG USE, FRACTURE, CORD COMPERSSION, CANCER, RETROPERITONEAL BLEED, SPINAL EPIDURAL HEMATOMA, or HERNIATED DISK CAUSING SEVERE SPINAL STENOSIS, thus I consider the discharge disposition reasonable. I have reevaluated this patient multiple times and no significant life threatening changes are noted. The patient and I have discussed the diagnosis and risks, and we agree with discharging home and close follow-up. We also discussed returning to the Emergency Department immediately if new or worsening symptoms occur with the understanding that symptoms and presentations can change. We have discussed the symptoms which are most concerning (e.g., saddle anesthesia, urinary or bowel incontinence or retention, changing or worsening pain) that necessitate immediate return. - Vital Signs Vital signs: Temp Pulse Resp BP Pulse Ox 97.6 F 71 18 126/74 H 95 08/09/17 11:53 08/09/17 11:53 08/09/17 11:53 08/09/17 11:53 08/09/17 11:53 Discharge - Discharge Clinical Impression: Left hip pain Condition: Good Disposition: HOME, SELF-CARE Additional Instructions: Pain Control without Medication Stress, inactivity, and depression make pain more severe, no matter the cause of the pain. Stress and poor physical condition can cause pain such as headaches and backache. Relaxation: Rest in a quiet place with your eyes closed for 20 minutes twice daily. Concentrate on a pleasant image, or simply "feel" your breathing. Clear your mind. Stress management: DEAL with your "stressors." Either take action, or eliminate the stressor from your life. Don't let things hang over you. Accept those things you can't change. Nutrition: Eat small, balanced meals; don't skip, don't overeat. Meals should be high-carbohydrate, low-sugar, low-fat. Exercise: Exercise helps painful conditions and eases stress. Get 30 minutes of moderate exercise, five days a week. Precautions: Pain that continues to disrupt daily activities, or which changes in nature, requires a medical evaluation. Osteoarthritis Your symptoms are due to osteoarthritis. Osteoarthritis is inflammation caused by "wear and tear" of the joints. There is no cure for osteoarthritis, but medicine can help the pain and stiffness. It's important to keep the joints moving. Move the joints through their full range daily. Light exercise helps, but if exercise hurts, switch to a non-impact exercise like swimming. Local warmth may help ease pain. Call or return if any joint becomes severely swollen or increasingly painful, or if you have fever or spreading redness. Follow-up with precision farming specialist tomorrow. Use her walker as directed. Continue taking your Robaxin, do not drive or drink or operate machinery while taking this medication as his continuous drowsiness. Take prednisone as directed. Heat 20 minutes on 20 minutes off several times a day. If you experience any symptoms but not limited to fevers, chills, chest pain, palpitations, shortness of breath, dyspnea, nausea, vomiting, diarrhea, abdominal pain, hematuria, weakness, bowel or bladder dysfunction, saddle anesthesia, numbness or tingling in bilateral upper or lower extremities equally , muscle paralysis, weakness in bilateral upper or lower extremities, the emergency room immediately. Return immediately for any new or worsening symptoms. Follow up with primary care provider, call tomorrow to make followup appointment. Prescriptions: Prednisone 20 mg PO BID #10 tablet Referrals: DELIA CORTÉS MD [ACTIVE STAFF] - Follow up tomorrow
--- NOTE | 2017-08-09 12:49 | RADIOLOGY REPORT (SQ) ---
EXAM DESCRIPTION: CT PELVIS WITHOUT COMPLETED DATE/TIME: 08/09/2017 12:25 pm REASON FOR STUDY: L hip pain, eval femur/hip fracture COMPARISON: None. TECHNIQUE: CT scan of the left hip performed without intravenous or oral contrast. Images reviewed with soft tissue and bone windows. Reconstructed coronal and sagittal MPR images reviewed. All imag es stored on PACS. All CT scanners at this facility use dose modulation, iterative reconstruction, and/or weight based d osing when appropriate to reduce radiation dose to as low as reasonably achievable (ALARA). [facility]: Dose Right [facility]: CareDose [facility]: Dose Right [facility]: Teradose 4D [facility]: Smart 99Presents RADIATION DOSE: CT Rad equipment meets quality standard of care and radiation dose reduction techniq ues were employed. CTDIvol: 42.9 mGy. DLP: 1454 mGy-cm. mGy. LIMITATIONS: None. FINDINGS: PELVIC BONES: No acute fracture. No worrisome bone lesions. VISUALIZED SPINE: No acute findings. SYMPTOMATIC HIP: No acute fracture or dislocation. No worrisome bone lesions. OPPOSITE HIP: No acute fracture or dislocation. No worrisome bone lesions. PELVIC SOFT TISSUES: No significant findings. EXTRAPELVIC SOFT TISSUES: No significant findings. OTHER: No other significant finding. IMPRESSION: NO ACUTE OR SIGNIFICANT FINDINGS IN THE HIP OR PELVIS. TECHNICAL DOCUMENTATION: JOB ID: [id number] Quality ID # [id number]: Final reports with documentation of one or more dose reduction techniques (e.g., Au tomated exposure control, adjustment of the mA and/or kV according to patient size, use of iterative reconstruction technique) 2010 [employer]- All Rights Reserved Reading location - IP/workstation name: [email or web address]
[2017-08-09] MEDS ORDERED: DEXAMETHASONE SOD PHOS INJ 10 MG/1 ML VIAL IV ONE (13:07)
[2017-08-09] MEDS ORDERED: DEXAMETHASONE SOD PHOS INJ 10 MG/1 ML VIAL IM ONE (13:34)
[2017-08-09 14:05] VITALS: BP 124/72
== END 2017-08-09 14:04 | disposition home or self-care (01) ==
LOC: ER 11:36
DX: M25.552 Pain in left hip (principal); G89.29 Other chronic pain; I10 Essential (primary) hypertension; J44.9 Chronic obstructive pulmonary disease, unspecified; Z88.5 Allergy status to narcotic agent; Z88.2 Allergy status to sulfonamides; Z87.891 Personal history of nicotine dependence
CPT/HCPCS: 99283; 96372; 72192; J3010; J1100

== ENCOUNTER 2018-04-02 13:59 | Emergency (ER) | payer MEDICARE, MEDICAID ==
--- NOTE | 2018-04-02 15:11 | ER Document Report ---
ED GI/ - General Chief Complaint: Flank Pain Stated Complaint: RIGHT SIDE AND BACK PAIN Time Seen by Provider: 04/02/18 15:10 Notes: 57-year-old female patient to the emergency department complaining of right flank pain. Patient states that she has had right flank pain since about midnight last night. Radiates down into the right lower quadrant. History of kidney stones. Increased frequency of urination. Denies any other significant symptoms at this time. TRAVEL OUTSIDE OF THE [place] IN LAST 30 DAYS: No COUNTRY TRAVELED TO/FROM: [facility] Patient complains to provider of: Abdominal pain, Flank pain - Related Data Allergies/Adverse Reactions: codeine [Codeine] Allergy (Severe, Verified 04/02/18 14:00) Facial/airway swelling, SOB, rash Sulfa (Sulfonamide Antibiotics) Allergy (Severe, Verified 04/02/18 14:00) Facial/airway swelling, SOB, rash hydrocodone [Hydrocodone] Allergy (Verified 04/02/18 14:00) oxycodone [Oxycodone] Allergy (Verified 04/02/18 14:00) Past Medical History - General Information source: Patient - Social History Smoking Status: Former Smoker Chew tobacco use (# tins/day): No Frequency of alcohol use: None Drug Abuse: None Lives with: Family Family History: Thyroid Disfunction - Mother Patient has suicidal ideation: No Patient has homicidal ideation: No - Past Medical History Cardiac Medical History: Reports: Hx Congestive Heart Failure - hospitalized x 2 (Mar 2011 & May 2011), Hx Hypertension Denies: Hx Atrial Fibrillation, Hx Heart Attack, Hx Hypercholesterolemia Pulmonary Medical History: Reports: Hx COPD, Hx Pneumonia - hospitalized x 2, Hx Sleep Apnea Denies: Hx Asthma, Hx Bronchitis, Hx Tuberculosis Neurological Medical History: Reports: Hx Migraine, Hx Seizures - prior to cerebral aneurysm clipping only Endocrine Medical History: Reports: Hx Hypothyroidism Renal/ Medical History: Reports: Hx Kidney Stones - "passed" x 3-4 renal calculi (2006). Denies: Hx End Stage Renal Disease, Hx Peritoneal Dialysis GI Medical History: Reports: Hx Gastritis, Hx Gastroesophageal Reflux Disease, Hx Irritable Bowel, Hx Colonoscopy, Hx Endoscopy. Denies: Hx Hiatal Hernia, Hx Ulcer Musculoskeletal Medical History: Reports Hx Arthritis, Reports Hx Musculoskeletal Deformity, Reports Hx Musculoskeletal Trauma Psychiatric Medical History: Reports: Hx Anxiety, Hx Attention Deficit Hyperactivity Disorder, Hx Bipolar Disorder, Hx Depression Denies: Hx Schizophrenia Traumatic Medical History: Reports: Hx Fractures - LEFT wrist Past Surgical History: Reports: Hx Appendectomy - incidental with open cholecystectomy 1986, Hx Cardiac Catheterization, Hx Section - 2001, Hx Cholecystectomy - open 1986, Hx Hysterectomy, Hx Neurologic Surgery, Hx Orthopedic Surgery - left knee replacement, left arm / nik. Denies: Hx Bowel Surgery, Hx Mastectomy, Hx Tonsillectomy, Hx Tubal Ligation - Immunizations Hx Diphtheria, Pertussis, Tetanus Vaccination: Yes Review of Systems - Review of Systems Notes: Constitutional: denies: Chills, Diaphoresis, Fever, Malaise, Weakness EENT: denies: Eye discharge, Blurred vision, Tearing, Double vision, Nose congestion, Nose discharge, Throat swelling, Mouth pain Cardiovascular: denies: Palpitations, Heart racing, Orthopnea, Dyspnea, Chest pain Respiratory: denies: Cough, Hurts to breathe, Wheezing, Shortness of breath Gastrointestinal: denies: Abdominal pain, Diarrhea, Nausea, Vomiting, Black stools, bright red blood in stool Genitourinary: denies: Burning, Dysuria, Discharge,. Does complain of right flank pain and frequency of urination. Musculoskeletal: denies: Joint pain, Joint swelling, Muscle pain, Muscle stiffness, back pain Hematologic/Lymphatic: denies: Anemia, Easy bleeding, Easy bruising, Blood clots Neurological/Psychological: denies: Confusion, Dementia, Depression, Loss of consciousness Skin: No lesions, no masses, no skin breakdown, no abscesses Physical Exam - Vital signs Vitals: Temp Pulse Resp BP Pulse Ox 97.6 F 64 18 86/60 L 97 04/02/18 14:26 04/02/18 14:26 04/02/18 14:26 04/02/18 14:26 04/02/18 14:26 Interpretation: Normal - General General appearance: Appears well, Alert - HEENT Head: Normocephalic, Atraumatic Eyes: Normal Pupils: PERRL - Respiratory Respiratory status: No respiratory distress Chest status: Nontender Breath sounds: Normal Chest palpation: Normal - Cardiovascular Rhythm: Regular Heart sounds: Normal auscultation Murmur: No - Abdominal Inspection: Normal Distension: No distension Bowel sounds: Normal Tenderness: Nontender Organomegaly: No organomegaly - Back Back: Normal, Nontender, CVA tenderness - On the right side - Extremities General upper extremity: Normal inspection, Nontender, Normal color, Normal ROM , Normal temperature General lower extremity: Normal inspection, Nontender, Normal color, Normal ROM , Normal temperature, Normal weight bearing. No: Hubert's sign - Neurological Neuro grossly intact: Yes Cognition: Normal Orientation: AAOx4 Audrey Coma Scale Eye Opening: Spontaneous [place] Coma Scale Verbal: Oriented Audrey Coma Scale Motor: Obeys Commands [place] Coma Scale Total: 15 Speech: Normal Motor strength normal: LUE, RUE, LLE, RLE Sensory: Normal - Psychological Associated symptoms: Normal affect, Normal mood - Skin Skin Temperature: Warm Skin Moisture: Dry Skin Color: Normal Course - Re-evaluation Re-evalutation: 04/02/18 16:57 Very minimal/mild exam. Urinalysis possible UTI. Ultrasound fairly unremarkable. No signs of dilation so unlikely this represents a large obstructing kidney stone. At this time will place on some antibiotics as this could represent a mild to early pyelonephritis. Will DC at this time. - Vital Signs Vital signs: Temp Pulse Resp BP Pulse Ox 97.6 F 64 18 86/60 L 97 04/02/18 14:26 04/02/18 14:26 04/02/18 14:26 04/02/18 14:26 04/02/18 14:26 - Laboratory Laboratory results interpreted by me: 04/02/18 15:24 Ur Leukocyte Esterase SMALL H Discharge - Discharge Clinical Impression: Urinary tract infection Qualifiers: Urinary tract infection type: site unspecified Hematuria presence: without hematuria Qualified Code(s): N39.0 - Urinary tract infection, site not specified Condition: Good Disposition: HOME, SELF-CARE Instructions: Urinary Tract Infection ([facility]) Additional Instructions: In the event that symptoms are getting worse or no better please return for repeat evaluation and treatment in the next 24 hours. Prescriptions: Ciprofloxacin HCl [Cipro 500 mg Tablet] 500 mg PO BID 5 Days #10 tablet Forms: Return to Work
[2018-04-02] MEDS ORDERED: KETOROLAC TROMETHAMINE 60 MG/2 ML SDV IM PRN (15:16)
[2018-04-02 15:47] LABS: APPEARANCE,URINE CLEAR; BILIRUBIN,URINE NEGATIVE (NEGATIVE); COLOR,URINE YELLOW; GLUCOSE, URINE NEGATIVE (NEGATIVE); KETONES,URINE NEGATIVE (NEGATIVE); LEUKOCYTE ESTERASE,URINE SMALL (NEGATIVE); NITRITE,URINE NEGATIVE (NEGATIVE); PROTEIN,URINE NEGATIVE (NEGATIVE); URINE SPECIFIC GRAVITY 1.013; UROBILINOGEN,URINE NEGATIVE mg/dL (<2.0)
--- NOTE | 2018-04-02 16:39 | RADIOLOGY REPORT (SQ) ---
EXAM DESCRIPTION: U/S RETROPERITON (RENAL/AORTA) COMPLETED DATE/TIME: 04/02/2018 4:21 pm REASON FOR STUDY: left flank COMPARISON: None. TECHNIQUE: Dynamic and static grayscale images acquired of the kidneys and bladder and recorded on P ACS. Additional selected color Doppler and spectral images recorded. LIMITATIONS: None. FINDINGS: RIGHT KIDNEY: Normal size. Normal echogenicity. No solid or suspicious masses. No hydronep hrosis. No calcifications. LEFT KIDNEY: Normal size. Normal echogenicity. No solid or suspicious masses. No hydronephrosis. No calcifications. BLADDER: No masses. OTHER FINDINGS: No other significant finding. IMPRESSION: NORMAL RENAL AND BLADDER ULTRASOUND. TECHNICAL DOCUMENTATION: JOB ID: [id number] [employer]- All Rights Reserved Reading location - IP/workstation name: [email or web address]
[2018-04-02] MEDS ORDERED: CIPROFLOXACIN HCL 500 MG TABLET PO ONE (17:08)
[2018-04-02 17:25] VITALS: BP 102/65
== END 2018-04-02 17:33 | disposition home or self-care (01) ==
LOC: ER 13:59
DX: N39.0 Urinary tract infection, site not specified (principal); I10 Essential (primary) hypertension; J44.9 Chronic obstructive pulmonary disease, unspecified; Z87.442 Personal history of urinary calculi; Z88.5 Allergy status to narcotic agent; Z88.2 Allergy status to sulfonamides; Z87.891 Personal history of nicotine dependence
CPT/HCPCS: 99284; 96372; 87086; 81001; 76770; A9270; J1885

== ENCOUNTER 2018-10-14 13:04 | Emergency (ER) | payer MEDICARE, MEDICAID ==
[2018-10-14] MEDS ORDERED: LIDOCAINE 1% INJ-PF (10 MG/ML) 30 ML SDV INJ ONE (14:18)
[2018-10-14] MEDS ORDERED: DIPH/PERTUSS(ACELL)/TETANUS VAC/PF 0.5 ML SYR (>=10YO) IM ONE (14:18)
--- NOTE | 2018-10-14 14:35 | ER Document Report ---
ED General - General Chief Complaint: Thumb Injury Stated Complaint: THUMB LACERATION Time Seen by Provider: 10/14/18 13:45 Primary Care Provider: HALEY GUZMAN DO [Primary Care Provider] - Follow up in 1 week Notes: Patient is a 58-year-old female who presents the emergency department with a laceration to her left thumb. She states that she was using a knife and cut her left thumb. She is able to flex and extend her thumb with no problem. She is not up-to-date on her tetanus shot. She also states that she has a possible insect bite to the back of her right calf. She denies any fever, body aches, or any other symptoms. TRAVEL OUTSIDE OF THE [place] IN LAST 30 DAYS: No COUNTRY TRAVELED TO/FROM: [place] - Related Data Allergies/Adverse Reactions: codeine [Codeine] Allergy (Severe, Verified 10/14/18 13:18) Facial/airway swelling, SOB, rash Sulfa (Sulfonamide Antibiotics) Allergy (Severe, Verified 10/14/18 13:18) Facial/airway swelling, SOB, rash hydrocodone [Hydrocodone] Allergy (Verified 10/14/18 13:18) oxycodone [Oxycodone] Allergy (Verified 10/14/18 13:18) Past Medical History - Social History Smoking Status: Unknown if Ever Smoked Family History: Thyroid Disfunction - Mother Patient has suicidal ideation: No Patient has homicidal ideation: No - Past Medical History Cardiac Medical History: Reports: Hx Congestive Heart Failure - hospitalized x 2 (Mar 2011 & May 2011), Hx Hypertension Denies: Hx Atrial Fibrillation, Hx Heart Attack, Hx Hypercholesterolemia Pulmonary Medical History: Reports: Hx COPD, Hx Pneumonia - hospitalized x 2, Hx Sleep Apnea Denies: Hx Asthma, Hx Bronchitis, Hx Tuberculosis Neurological Medical History: Reports: Hx Migraine, Hx Seizures - prior to cerebral aneurysm clipping only Endocrine Medical History: Reports: Hx Hypothyroidism Renal/ Medical History: Reports: Hx Kidney Stones - "passed" x 3-4 renal calculi (2006). Denies: Hx End Stage Renal Disease, Hx Peritoneal Dialysis GI Medical History: Reports: Hx Gastritis, Hx Gastroesophageal Reflux Disease, Hx Irritable Bowel, Hx Colonoscopy, Hx Endoscopy. Denies: Hx Hiatal Hernia, Hx Ulcer Musculoskeletal Medical History: Reports Hx Arthritis, Reports Hx Musculoske letal Deformity, Reports Hx Musculoskeletal Trauma, Denies Hx Systemic Lupus Erythematosus Psychiatric Medical History: Reports: Hx Anxiety, Hx Attention Deficit Hyperactivity Disorder, Hx Bipolar Disorder, Hx Depression Denies: Hx Schizophrenia Traumatic Medical History: Reports: Hx Fractures - LEFT wrist Past Surgical History: Reports: Hx Appendectomy - incidental with open cholecystectomy 1986, Hx Cardiac Catheterization, Hx Section - 2001, Hx Cholecystectomy - open 1986, Hx Hysterectomy, Hx Neurologic Surgery, Hx Orthopedic Surgery - left knee replacement, left arm / nik. Denies: Hx Bowel Surgery, Hx Mastectomy, Hx Tonsillectomy, Hx Tubal Ligation - Immunizations Hx Diphtheria, Pertussis, Tetanus Vaccination: Yes Review of Systems - Review of Systems Notes: REVIEW OF SYSTEMS: CONSTITUTIONAL : Denies recent illness. Denies recent unintentional weight loss. Denies fever, chills, or sweats. EENT: Denies eye, ear, throat, or mouth pain, discharge, or symptoms. Denies nasal or sinus congestion. CARDIOVASCULAR: Denies chest pain. RESPIRATORY: Denies shortness of breath, cough, congestion, difficulty breathing, or wheezing. GASTROINTESTINAL: Denies nausea, vomiting, and diarrhea. Denies abdominal pain. Denies constipation. GENITOURINARY: Denies difficulty urinating, burning, blood in urine, urgency or frequency. MUSCULOSKELETAL: Denies neck and back pain. Denies joint pain or swelling. SKIN: See HPI HEMATOLOGIC : Denies easy bruising or bleeding. LYMPHATIC: Denies swollen, painful, enlarged glands. NEUROLOGICAL: Denies no numbness or tingling denies weakness. Denies headache. Denies altered mental status. Denies alteration in speech. PSYCHIATRIC: Denies stress, anxiety, alteration in sleep patterns, or depression. All other systems reviewed and negative. Physical Exam - Vital signs Vitals: Temp Pulse Resp BP Pulse Ox 97.7 F 77 18 120/79 95 10/14/18 13:19 10/14/18 13:19 10/14/18 13:19 10/14/18 13:19 10/14/18 13:19 - Notes Notes: PHYSICAL EXAMINATION: GENERAL: Appears well, healthy, well-nourished, no acute distress. HEAD: Normocephalic, atraumatic. EYES: PERRL, conjunctiva normal, all extraocular movements intact, sclera nonicteric ENT: Moist mucous membranes. NECK: Supple, no noticeable swelling, redness, rash. Normal range of motion. LUNGS: Equal breath sounds bilaterally and clear to auscultation. No wheezes rales or rhonchi. CARDIOVASCULAR: S1-S2, regular rate, regular rhythm. Radial pulses 2+, normal. ABDOMEN: Normoactive bowel sounds. Soft, nontender, no guarding, no rebound tenderness, and no masses palpated. EXTREMITIES: Normal strength and range of motion, no pitting or edema. No cyanosis. NEUROLOGICAL: Moves all extremities upon command. Strength 5/5 in all extremities. PSYCH: Normal mood, normal affect. SKIN: Warm, dry. Normal skin turgor. Laceration to the distal end of left thumb medial to the nail bed. Erythema noted to right thigh in a circular pattern. No bull's-eye noted. Course - Re-evaluation Re-evalutation: 10/14/18 14:35 Patient's laceration is superficial. I do not suspect any bone or tendon involvement. X-rays are not indicated at this time. Bedside ultrasound was done and there is no pocket of fluid noted on the left calf. She will be started on Keflex to treat cellulitis. I do not suspect patient has a DVT. 10/14/18 15:15 Laceration repair was done. The patient tolerated this procedure well. She will be on Keflex for her cellulitis. Verbal discharge instructions were given to the patient. They verbalized understanding. They are stable for discharge. - Vital Signs Vital signs: Temp Pulse Resp BP Pulse Ox 98.5 F 75 16 120/78 96 10/14/18 15:12 10/14/18 15:12 10/14/18 15:12 10/14/18 15:12 10/14/18 15:12 Procedures - Laceration/Wound Repair Left Distal Thumb Wound length (cm): 2.5 Wound's Depth, Shape: Superficial, Linear Laceration pre-procedure: Sterile PPE Jenna harper applied Anesthetic type: 1% Lidocaine Volume Anesthetic (mLs): 3 Wound explored: Clean, No foreign body removed Wound Repaired With: Sutures Suture Size/Type: 5:0, Nylon Number of Sutures: 5 Layer Closure?: No Post-procedure wound care: Sterile dressing applied Post-procedure NV exam normal: Yes Complications: No Discharge - Discharge Clinical Impression: Thumb laceration Qualifiers: Encounter type: initial encounter Damage to nail status: without damage Foreign body presence: without foreign body Laterality: left Qualified Code(s): S61.012A - Laceration without foreign body of left thumb without damage to nail, initial encounter Cellulitis Qualifiers: Site of cellulitis: extremity Site of cellulitis of extremity: lower extremity Laterality: right Qualified Code(s): L03.115 - Cellulitis of right lower limb Condition: Stable Disposition: HOME, SELF-CARE Instructions: Antibiotic Ointment Protection ([facility]), Laceration Care ([facility]), Soap Cleansing ([facility]), Tetanus Immunization Given ([facility]) Additional Instructions: Please return to your primary doctor, the ED, or an urgent care in 7 days for suture removal. Return immediately if you develop spreading redness around the wound, pus from the wound, worsening pain, or a fever of >100.4. Keep the area clean and dry. Wash gently with soap and water twice daily and cover with antibiotic ointment. The rash is likely due to infection of your skin. You need to take the antibiotics as prescribed. Do not stop even if the rash goes away until you have completed all the antibiotics. The area of redness was traced out here in the emergency department with a marking pen. You need to return to emergency department if the redness spreads outside of this area by more than 2 cm in any direction. You should also return if you develop fevers with temperature greater than 101, persistent vomiting, worsening pain, or have any other symptoms that are concerning to you. Prescriptions: Cephalexin Monohydrate [Keflex 500 mg Capsule] 500 mg PO Q6H 7 Days #28 capsule Referrals: HALEY GUZMAN DO [Primary Care Provider] - Follow up in 1 week
[2018-10-14 15:13] VITALS: BP 120/78
== END 2018-10-14 15:11 | disposition home or self-care (01) ==
LOC: ER 13:04
DX: S61.012A Laceration without foreign body of left thumb without damage to nail, initial encounter (principal); L03.115 Cellulitis of right lower limb; W26.0XXA Contact with knife, initial encounter; I50.9 Heart failure, unspecified; I11.0 Hypertensive heart disease with heart failure; J44.9 Chronic obstructive pulmonary disease, unspecified; E03.9 Hypothyroidism, unspecified; Z88.6 Allergy status to analgesic agent; Z88.2 Allergy status to sulfonamides; Z23 Encounter for immunization
CPT/HCPCS: 99282; 90471; 90715; 12001; J3490

== ENCOUNTER 2018-12-21 23:24 | Emergency (ER) | payer MEDICARE, MEDICAID ==
--- NOTE | 2018-12-22 00:24 | ER Document Report ---
ED General - General Chief Complaint: Productive Cough Stated Complaint: COUGHING UP BLOOD Time Seen by Provider: 12/22/18 00:14 Primary Care Provider: HALEY GUZMAN DO [NO LOCAL MD] - Follow up as needed Notes: Patient is a 58-year-old female that comes to the emergency department for chief complaint of coughing up blood. She tells me this morning she blew a large amount of snot out of her nose, she started bleeding from the left nostril heavily, she states she filled up her cup hand with blood, she states she blew her nose again and then held pressure and this did stop. She states she kept feeling a funny taste in the back of her throat during the day and then during the coughing episode she coughed up blood. She denies difficulty breathing, fever/chills, headache, sinus pain, chest pain, or any other current symptoms. She takes a baby aspirin daily although has forgotten to for the past 4 days. TRAVEL OUTSIDE OF THE [place] IN LAST 30 DAYS: No COUNTRY TRAVELED TO/FROM: [place] - Related Data Allergies/Adverse Reactions: codeine [Codeine] Allergy (Severe, Verified 12/21/18 23:29) Facial/airway swelling, SOB, rash Sulfa (Sulfonamide Antibiotics) Allergy (Severe, Verified 12/21/18 23:29) Facial/airway swelling, SOB, rash hydrocodone [Hydrocodone] Allergy (Verified 12/21/18 23:29) oxycodone [Oxycodone] Allergy (Verified 12/21/18 23:29) Past Medical History - General Information source: Patient - Social History Smoking Status: Never Smoker Frequency of alcohol use: None Drug Abuse: None Lives with: Family Family History: Thyroid Disfunction - Mother - Past Medical History Cardiac Medical History: Reports: Hx Congestive Heart Failure - hospitalized x 2 (Mar 2011 & May 2011), Hx Hypertension Denies: Hx Atrial Fibrillation, Hx Heart Attack, Hx Hypercholesterolemia Pulmonary Medical History: Reports: Hx COPD, Hx Pneumonia - hospitalized x 2, Hx Sleep Apnea Denies: Hx Asthma, Hx Bronchitis, Hx Tuberculosis Neurological Medical History: Reports: Hx Migraine, Hx Seizures - prior to cerebral aneurysm clipping only Endocrine Medical History: Reports: Hx Hypothyroidism Renal/ Medical History: Reports: Hx Kidney Stones - "passed" x 3-4 renal calculi (2006). Denies: Hx End Stage Renal Disease, Hx Peritoneal Dialysis GI Medical History: Reports: Hx Gastritis, Hx Gastroesophageal Reflux Disease, Hx Irritable Bowel, Hx Colonoscopy, Hx Endoscopy. Denies: Hx Hiatal Hernia, Hx Ulcer Musculoskeletal Medical History: Reports Hx Arthritis, Reports Hx Musculoskeletal Deformity, Reports Hx Musculoskeletal Trauma, Denies Hx Systemic Lupus Erythematosus Psychiatric Medical History: Reports: Hx Anxiety, Hx Attention Deficit Hyperactivity Disorder, Hx Bipolar Disorder, Hx Depression Denies: Hx Schizophrenia Traumatic Medical History: Reports: Hx Fractures - LEFT wrist Past Surgical History: Reports: Hx Appendectomy - incidental with open cholecystectomy 1986, Hx Cardiac Catheterization, Hx Section - 2001, Hx Cholecystectomy - open 1986, Hx Hysterectomy, Hx Neurologic Surgery, Hx Orthopedic Surgery - left knee replacement, left arm / nik. Denies: Hx Bowel Surgery, Hx Mastectomy, Hx Tonsillectomy, Hx Tubal Ligation - Immunizations Hx Diphtheria, Pertussis, Tetanus Vaccination: Yes Review of Systems - Review of Systems Constitutional: No symptoms reported EENT: See HPI Cardiovascular: No symptoms reported Respiratory: See HPI Gastrointestinal: No symptoms reported Genitourinary: No symptoms reported Female Genitourinary: No symptoms reported Musculoskeletal: No symptoms reported Skin: No symptoms reported Hematologic/Lymphatic: No symptoms reported Neurological/Psychological: No symptoms reported Physical Exam - Vital signs Vitals: Temp Pulse Resp BP Pulse Ox 98.5 F 68 20 124/80 95 12/21/18 23:39 12/21/18 23:39 12/21/18 23:39 12/21/18 23:39 12/21/18 23:39 - Notes Notes: GENERAL: Alert, interacts well. No acute distress. HEAD: Normocephalic, atraumatic. EYES: Pupils equal, round, and reactive to light. Extraocular movements intact. ENT: Oral mucosa moist, tongue midline. Oropharynx unremarkable. Airway patent. Nares patent, no nasal septal hematoma, TM's intact. There is an area of dried epistaxis with clot in the left anterior nostril over the lateral aspect. No current bleeding. No blood in the posterior pharynx. NECK: Full range of motion. Supple. Trachea midline. LUNGS: Clear to auscultation bilaterally, no wheezes, rales, or rhonchi. No respiratory distress. HEART: Regular rate and rhythm. No murmur ABDOMEN: Soft, non-tender. Non-distended. Bowel sounds present in all 4 quad rants. GENITOURINARY: Deferred EXTREMITIES: Moves all 4 extremities spontaneously. No edema, normal radial and dorsalis pedis pulses bilaterally. No cyanosis. BACK: no cervical, thoracic, lumbar midline tenderness. No saddle anesthesia, normal distal neurovascular exam. Moves all extremities in full range of motion. NEUROLOGICAL: Alert and oriented x3. Normal speech. Cranial nerves II through XII grossly intact. PSYCH: Normal affect, normal mood. SKIN: Warm, dry, normal turgor. No rashes or lesions noted. Course - Re-evaluation Re-evalutation: Patient was bleeding from an anterior location in the left nostril, this is visualized on exam but is not currently bleeding. It is most likely that patient coughed up blood because of the epistaxis that had occurred earlier. Chest x-ray unremarkable. CBC unremarkable including normal platelets, chemistry showing normal liver function, PT and PTT are unremarkable. Potassium is too low at 3.0. However EKG was checked and QTC is 429 without any significant changes from prior. I did discuss with Dr. Mclaughlin. Patient did not have any additional bleeding or additional symptoms during her evaluation here. Patient has had hypokalemia several times in the past, she states that she takes Lasix, she was previously on potassium but has been taken off. She will be placed back on potassium, given a dose of potassium here tonight. Discussed nosebleed precautions, work-up, follow-up, return precautions. Patient patient states satisfaction agreement with plan. - Vital Signs Vital signs: Temp Pulse Resp BP Pulse Ox 97.6 F 99 19 136/50 H 99 12/22/18 02:36 12/22/18 02:36 12/22/18 02:36 12/22/18 02:36 12/22/18 02:36 - Laboratory Result Diagrams: 12/22/18 00:42 12/22/18 00:42 Laboratory results interpreted by me: 12/22/18 00:42 Potassium 3.0 L* Carbon Dioxide 32 H BUN 23 H Est GFR (Non-Af Amer) 56 L - EKG Interpretation by Me Additional EKG results interpreted by me: EKG shows sinus rhythm at a rate of 57, QTC of 429, normal axis. No T wave inversions or ST segment changes in consecutive leads. Discharge - Discharge Clinical Impression: Epistaxis, Hemoptysis, Hypokalemia Condition: Stable Disposition: HOME, SELF-CARE Additional Instructions: Your coughing up blood appears to be from the nosebleed which has resolved. There is a significant chance of re-bleeding following a nosebleed. Proper care makes this less likely. Do not touch the nose for 24 hours. Do not blow the nose forcefully for one week. After 24 hours, gently apply Vaseline or Bacitracin ointment to both nostrils with the tip of a finger or carefully with a Q tip, three times a day, for one week. It's normal to have a bloody mucous discharge for a few days. If active bleeding recurs, blow all the blood from the nose, then sit quietly and pinch the nose as firmly as possible for 10 minutes. If this does not stop the bleeding, return for further care. Return for any other concerning symptoms. Your potassium was too low today. Please take the potassium supplement as prescribed, also increase potassium in your diet over the next couple of days. Have this rechecked closely by your primary care. Prescriptions: Potassium Chloride 10 meq PO DAILY #30 capsule.er Forms: Return to Work Referrals: HALEY GUZMAN, [NO LOCAL MD] - Follow up as needed
[2018-12-22 00:58] LABS: ABSOLUTE BASOPHILS # (AUTO) 0.1 10^3/uL (0.0-0.2); ABSOLUTE EOSINOPHILS # (AUTO) 0.2 10^3/uL (0.0-0.6); ABSOLUTE LYMPHOCYTES (AUTO) 2.2 10^3/uL (0.5-4.7); ABSOLUTE MONOCYTES (AUTO) 0.4 10^3/uL (0.1-1.4); ABSOLUTE NEUT (AUTO) 4.2 10^3/uL (1.7-8.2); BASOPHILS % (AUTO) 0.9 % (0-2); EOSINOPHILS % (AUTO) 2.2 % (0-6); HEMATOCRIT 36.2 % (36.0-47.0); HEMOGLOBIN 12.2 g/dL (12.0-15.5); LYMPHOCYTES % (AUTO) 31.1 % (13-45); MEAN CORPUSCULAR HEMOGLOBIN 28.5 pg (27.0-33.4); MEAN CORPUSCULAR HGB CONC 33.7 g/dL (32.0-36.0); MEAN CORPUSCULAR VOLUME 85 fl (80-97); PLATELET COUNT 246 10^3/uL (150-450); RED BLOOD COUNT 4.29 10^6/uL (3.72-5.28); RED CELL DISTRIBUTION WIDTH 12.9 % (11.5-14.0); SEGMENTED NEUTROPHILS % (AUTO) 59.8 % (42-78); TOTAL CELLS COUNTED % (AUTO) 100 %
[2018-12-22 01:04] LABS: INTERNATIONAL RATION (INR) 0.93; PROTHROMBIN TIME 12.4 SEC (11.4-15.4)
[2018-12-22 01:05] LABS: PARTIAL THROMBOPLASTIN TIME 27.7 SEC (23.5-35.8)
[2018-12-22 01:09] LABS: ALBUMIN 3.9 g/dL (3.5-5.0); ALKALINE PHOSPHATASE 99 U/L (38-126); ANION GAP 8 (5-19); ASPARTATE AMINO TRANSFERASE 18 U/L (14-36); BILIRUBIN,DIRECT 0.3 mg/dL (0.0-0.4); BILIRUBIN,TOTAL 0.5 mg/dL (0.2-1.3); BLOOD UREA NITROGEN 23 mg/dL (7-20); CARBON DIOXIDE 32 mmol/L (22-30); CHLORIDE 100 mmol/L (98-107); GLUCOSE 106 mg/dL (75-110); TOTAL PROTEIN 6.8 g/dL (6.3-8.2)
--- NOTE | 2018-12-22 01:30 | RADIOLOGY REPORT (SQ) ---
CLINICAL HISTORY: coughing up blood COMPARISON: 12/17/2015. TECHNIQUE: XR CHEST 2 VIEWS 12/22/2018 12:23 AM CDT FINDINGS: Cardiac silhouette is normal in size. Lungs are clear without consolidation, atelectasis, mass or edema. There is no pleural effusion. There is no pneumothorax. There are no acute osseous findings. IMPRESSION: Clear lungs.
[2018-12-22] MEDS ORDERED: POTASSIUM CHLORIDE 10 MEQ CAPSULE.ER PO ONE (01:35)
[2018-12-22 02:38] VITALS: BP 136/50
--- NOTE | 2018-12-22 07:51 | EKG REPORT ---
SEVERITY:- ABNORMAL ECG - SINUS RHYTHM DIFFUSE NONSPECIFIC ST-T CHANGES. : Confirmed by: Francois Up MD 22-Dec-2018 07:50:00
== END 2018-12-22 02:36 | disposition home or self-care (01) ==
LOC: ER 23:24
DX: R04.2 Hemoptysis (principal); R04.0 Epistaxis; E87.6 Hypokalemia; I11.0 Hypertensive heart disease with heart failure; I50.9 Heart failure, unspecified; J44.9 Chronic obstructive pulmonary disease, unspecified; Z87.01 Personal history of pneumonia (recurrent); Z88.5 Allergy status to narcotic agent; Z88.2 Allergy status to sulfonamides
CPT/HCPCS: 93005; 99284; 36415; 85025; 85610; 85730; 80053; 71046; 93010; A9270

== ENCOUNTER 2019-01-21 11:18 | Emergency (ER) | payer MEDICARE, MEDICAID ==
--- NOTE | 2019-01-21 11:28 | ER Document Report ---
ED Medical Screen (RME) - General Chief Complaint: Headache Stated Complaint: NECK PAIN Time Seen by Provider: 01/21/19 11:26 Primary Care Provider: ANIBAL CHOUDHARY PA-C [Primary Care Provider] - Follow up as needed Mode of Arrival: Ambulatory Information source: Patient Notes: 58-year-old female presented to ED for a headache for 6 months. She states she had a aneurysm in 2001 which was clipped. She states she went dividing [place] yesterday had a IV contrasted CT and was cleared and told she could go home. She states she is very unsteady and dizzy. She states she came in today because the dizziness is continuing and she is concerned. She is alert oriented respirations regular and unlabored speaking in full sentences. I have greeted and performed a rapid initial assessment of this patient. A comprehensive ED assessment and evaluation of the patient, analysis of test results and completion of medical decision making process will be conducted by an additional ED providers. TRAVEL OUTSIDE OF THE [place] IN LAST 30 DAYS: No COUNTRY TRAVELED TO/FROM: [place] - Related Data Allergies/Adverse Reactions: codeine [Codeine] Allergy (Severe, Verified 01/21/19 11:23) Facial/airway swelling, SOB, rash Sulfa (Sulfonamide Antibiotics) Allergy (Severe, Verified 01/21/19 11:23) Facial/airway swelling, SOB, rash hydrocodone [Hydrocodone] Allergy (Verified 01/21/19 11:23) oxycodone [Oxycodone] Allergy (Verified 01/21/19 11:23) Past Medical History - Past Medical History Cardiac Medical History: Reports: Hx Congestive Heart Failure - hospitalized x 2 (Mar 2011 & May 2011), Hx Hypertension Denies: Hx Atrial Fibrillation, Hx Heart Attack, Hx Hypercholesterolemia Pulmonary Medical History: Reports: Hx COPD, Hx Pneumonia - hospitalized x 2, Hx Sleep Apnea Denies: Hx Asthma, Hx Bronchitis, Hx Tuberculosis Neurological Medical History: Reports: Hx Migraine, Hx Seizures - prior to cerebral aneurysm clipping only Endocrine Medical History: Reports: Hx Hypothyroidism Renal/ Medical History: Reports: Hx Kidney Stones - "passed" x 3-4 renal calculi (2006). Denies: Hx End Stage Renal Disease, Hx Peritoneal Dialysis GI Medical History: Reports: Hx Gastritis, Hx Gastroesophageal Reflux Disease, Hx Irritable Bowel, Hx Colonoscopy, Hx Endoscopy. Denies: Hx Hiatal Hernia, Hx Ulcer Musculoskeltal Medical History: Reports Hx Arthritis, Reports Hx Musculoskeletal Deformity, Reports Hx Musculoskeletal Trauma, Denies Hx Systemic Lupus Erythematosus Psychiatric Medical History: Reports: Hx Anxiety, Hx Attention Deficit Hyperactivity Disorder, Hx Bipolar Disorder, Hx Depression Denies: Hx Schizophrenia Traumatic Medical History: Reports: Hx Fractures - LEFT wrist Past Surgical History: Reports: Hx Appendectomy - incidental with open cholecystectomy 1986, Hx Cardiac Catheterization, Hx Section - 2001, Hx Cholecystectomy - open 1986, Hx Hysterectomy, Hx Neurologic Surgery, Hx Orthopedic Surgery - left knee replacement, left arm / nik. Denies: Hx Bowel Surgery, Hx Mastectomy, Hx Tonsillectomy, Hx Tubal Ligation - Immunizations Hx Diphtheria, Pertussis, Tetanus Vaccination: Yes Doctor's Discharge - Discharge Referrals: ANIBAL CHOUDHARY PA-C [Primary Care Provider] - Follow up as needed
[2019-01-21] MEDS ORDERED: METOCLOPRAMIDE HCL INJ/PF 10 MG/2 ML SDV IV ONE (15:47)
[2019-01-21] MEDS ORDERED: MECLIZINE HCL 25 MG TABLET PO ONE (15:48)
[2019-01-21] MEDS ORDERED: DIPHENHYDRAMINE HCL 50 MG/ML VIAL IV ONE (15:48)
--- NOTE | 2019-01-21 16:20 | ER Document Report ---
ED Headache - General Chief Complaint: Headache Stated Complaint: NECK PAIN Time Seen by Provider: 01/21/19 11:26 Primary Care Provider: ANIBAL CHOUDHARY PA-C [Primary Care Provider] - Follow up as needed Mode of Arrival: Ambulatory TRAVEL OUTSIDE OF THE [place] IN LAST 30 DAYS: No - HPI Patient complains to provider of: "Migraine". No: Headache, Facial pain, Other Patient reports: No: Brain neoplasm, Congenital anomally, Frequent migraines, Hx chronic headaches, Occasional migraines, Prior CVA, Prior neurologic eval, Prior hemorrhage, Prior TBI, [employer] Shunt, Other Onset: Yesterday Onset was: Gradual. denies: Abrupt, Cannot pinpoint, Thunderclap, While turning head, Other Timing: Still present Quality of pain: Throbbing Severity: Mild Pain Level: 2 Context: denies: CO exposure, Head injury, Insect bite, Meningitis exposure, Tick bite, Other Preceding symptoms: denies: Typical of prior aura(s), Visual disturbance, Other Associated symptoms: Dizzy. denies: None, Chills, Confusion, Double/blurred vi fifi, Fainting, Fever, Lightheaded, Memory loss, Motion sickness, Motor/sensory loss to arm, Motor/sensory loss to leg, Nausea/vomiting, Neck pain, Photophobia, Speech problems, Stiff neck, Sweaty, Tingling/numb sensation, Trouble walking, Other Exacerbated by: Light, Movement Similar symptoms previously: Yes Recently seen / treated by doctor: Yes - Patient was seen in [facility] yesterday - Related Data Allergies/Adverse Reactions: codeine [Codeine] Allergy (Severe, Verified 01/21/19 11:23) Facial/airway swelling, SOB, rash Sulfa (Sulfonamide Antibiotics) Allergy (Severe, Verified 01/21/19 11:23) Facial/airway swelling, SOB, rash hydrocodone [Hydrocodone] Allergy (Verified 01/21/19 11:23) oxycodone [Oxycodone] Allergy (Verified 01/21/19 11:23) Past Medical History - General Information source: Patient - Social History Smoking Status: Never Smoker Drug Abuse: None Lives with: Family Family History: Thyroid Disfunction - Mother. denies: None, Reviewed & Not Pertinent, Arthritis, CAD, COPD, CVA, DM, Hyperlipidemia, Hypertension, Malignancy, Other - Past Medical History Cardiac Medical History: Reports: Hx Congestive Heart Failure - hospitalized x 2 (Mar 2011 & May 2011), Hx Hypertension Denies: Hx Atrial Fibrillation, Hx Heart Attack, Hx Hypercholesterolemia Pulmonary Medical History: Reports: Hx COPD, Hx Pneumonia - hospitalized x 2, Hx Sleep Apnea Denies: Hx Asthma, Hx Bronchitis, Hx Tuberculosis Neurological Medical History: Reports: Hx Migraine, Hx Seizures - prior to cere bral aneurysm clipping only Endocrine Medical History: Reports: Hx Hypothyroidism Renal/ Medical History: Reports: Hx Kidney Stones - "passed" x 3-4 renal calculi (2006). Denies: Hx End Stage Renal Disease, Hx Peritoneal Dialysis GI Medical History: Reports: Hx Gastritis, Hx Gastroesophageal Reflux Disease, Hx Irritable Bowel, Hx Colonoscopy, Hx Endoscopy. Denies: Hx Hiatal Hernia, Hx Ulcer Musculoskeletal Medical History: Reports Hx Arthritis, Reports Hx Musculoskeletal Deformity, Reports Hx Musculoskeletal Trauma, Denies Hx Systemic Lupus Erythematosus Psychiatric Medical History: Reports: Hx Anxiety, Hx Attention Deficit Hyperactivity Disorder, Hx Bipolar Disorder, Hx Depression Denies: Hx Schizophrenia Traumatic Medical History: Reports: Hx Fractures - LEFT wrist Past Surgical History: Reports: Hx Appendectomy - incidental with open cholecystectomy 1986, Hx Cardiac Catheterization, Hx Section - 2001, Hx Cholecystectomy - open 1986, Hx Hysterectomy, Hx Neurologic Surgery, Hx Orthopedic Surgery - left knee replacement, left arm / nik. Denies: Hx Bowel Surgery, Hx Mastectomy, Hx Tonsillectomy, Hx Tubal Ligation - Immunizations Hx Diphtheria, Pertussis, Tetanus Vaccination: Yes Review of Systems - Review of Systems Constitutional: denies: No symptoms reported, See HPI, Chills, Diaphoresis, Fever, Malaise, Weakness, Other, Weight gain, Weight loss, Recent illness EENT: denies: No symptoms reported, See HPI, Eye pain, Eye discharge, Blurred vision, Tearing, Double vision, Ear pain, Ear discharge, Nose pain, Nose congestion, Nose discharge, Sinus pressure, Sinus discharge, Throat pain, Difficulty swallowing, Throat swelling, Mouth pain, Mouth swelling, Dental problem, Vertigo, Other Cardiovascular: denies: No symptoms reported, See HPI, Chest pain, Palpitations, Heart racing, Orthopnea, Dyspnea, Syncope, Dizziness, Lightheaded, Edema, Other, Paroxysmal Nocturnal Dysp Respiratory: denies: No symptoms reported, See HPI, Cough, Hurts to breathe, Hemoptysis, Short of breath, Sputum, Stridor, Wheezing, Other Gastrointestinal: denies: No symptoms reported, See HPI, Abdomen distended, Abdominal pain, Diarrhea, Nausea, Vomiting, Constipation, Blood streaked bowels, Poor appetite, Poor fluid intake, Blood in vomit, Black stools, Rectal bleeding, Last bowel movement, Fecal incontinence, Other Genitourinary: denies: No symptoms reported, See HPI, Burning, Dysuria, Discharge, Frequency, Flank pain, Hematuria, Incontinence, Pain, Urgency, Retention, Other Musculoskeletal: denies: No symptoms reported, See HPI, Back pain, Gout, Joint pain, Joint swelling, Muscle pain, Muscle stiffness, Neck pain, Deformity, Leg swelling, Ankle swelling, Other Neurological/Psychological: Headaches, Other - mildly dizzy when standing. denies: No symptoms reported, See HPI, Confusion, Dementia, Depression, Anxiety, Hallucinations, Sensory change, Homicidal ideation, Weakness, Gait changes, Loss of power, Paralysis, Seizure, Lost consciousness, Speech impairment, Numbness, Suicidal ideation, Tingling, Tremor Physical Exam - Vital signs Vitals: Temp Pulse Resp BP Pulse Ox 97.9 F 84 18 122/76 92 01/21/19 11:26 01/21/19 11:26 01/21/19 11:26 01/21/19 11:26 01/21/19 11:26 Notes: PHYSICAL EXAMINATION: GENERAL: Well-appearing, well-nourished and in no acute distress. HEAD: Atraumatic, normocephalic. EYES: Pupils equal round and reactive to light, extraocular movements intact, sclera anicteric, conjunctiva are normal. ENT: nares patent, oropharynx clear without exudates. Moist mucous membranes. NECK: Normal range of motion, supple without lymphadenopathy no meningismus LUNGS: Breath sounds clear to auscultation bilaterally and equal. No wheezes rales or rhonchi. HEART: Regular rate and rhythm without murmurs ABDOMEN: Soft, nontender, normoactive bowel sounds. No guarding, no rebound. No masses appreciated. EXTREMITIES: Normal range of motion, no pitting or edema. No cyanosis. NEUROLOGICAL: No focal neurological deficits. Moves all extremities spontaneousl y and on command. Patient with l beating nystagmus but normal gait. Ms 5/5 laterally both upper and lower extremities PSYCH: Normal mood, normal affect. SKIN: Warm, Dry, normal turgor, no rashes or lesions noted. Course - Vital Signs Vital signs: Temp Pulse Resp BP Pulse Ox 97.9 F 84 18 122/76 92 01/21/19 11:26 01/21/19 11:26 01/21/19 11:26 01/21/19 11:26 01/21/19 11:26 - Laboratory Result Diagrams: 01/21/19 16:26 01/21/19 16:26 Laboratory results interpreted by me: 01/21/19 16:26 BUN 26 H - Diagnostic Test Radiology reviewed: Image reviewed, Reports reviewed - EKG Interpretation by Me EKG shows normal: Sinus rhythm Rhythm: NSR Heart block present: 1st Degree When compared to previous EKG there are: Other - non specific stt chages. - Transfer of Care Notes: 01/21/19 18:39 Notes EKG when compared to 01/01/2019 there is no acute change there is some nonspecific T wave inversion in V3 to V5 which were present previously no ST elevation or other abnormalities. 01/21/19 18:39 Claims her headache is gone her dizziness is also gone she does have some pain in the side of the neck which I believe is muscular. She will be sent home with a perception for Fioricet meclizine Valium for muscle relaxant Discharge - Discharge Clinical Impression: Migraine, Vertigo, Torticollis, acute, Migraine Condition: Good Disposition: HOME, SELF-CARE Instructions: Headache ([facility]), Reglan ([facility]) Additional Instructions: Return if headache returns and persists or worsens fever over 101 stiffness in the neck worsens despite the medicines chest pain shortness breath or condition worsens. Follow-up with your doctor for referral to a headache clinic. Prescriptions: Butalb/Acetaminophen/Caffeine [Fioricet (50-325-40 mg) Tablet] 1 tab PO Q4HP PRN #30 tab PRN Reason: Meclizine HCl [Antivert 25 mg Tablet] 25 mg PO Q6 PRN #30 tablet PRN Reason: Dizziness Diazepam [Valium 2 mg Tablet] 2 mg PO 12 PRN #15 tablet PRN Reason: Muscle Spasms Referrals: ANIBAL CHOUDHARY PA-C [Primary Care Provider] - Follow up as needed
--- NOTE | 2019-01-21 16:21 | RADIOLOGY REPORT (SQ) ---
EXAM DESCRIPTION: CT HEAD WITHOUT COMPLETED DATE/TIME: 01/21/2019 4:09 pm REASON FOR STUDY: headache COMPARISON: None. TECHNIQUE: Axial images acquired through the brain without intravenous contrast. Images reviewed wi th bone, brain and subdural windows. Additional sagittal and coronal reconstructions were generated. Images stored on PACS. All CT scanners at this facility use dose modulation, iterative reconstruction, and/or weight based d osing when appropriate to reduce radiation dose to as low as reasonably achievable (ALARA). [facility]: Dose Right [facility]: CareDose [facility]: Dose Right [facility]: Teradose 4D [facility]: [employer] RADIATION DOSE: CT Rad equipment meets quality standard of care and radiation dose reduction techniq ues were employed. CTDIvol: 53.2 mGy. DLP: 991 mGy-cm. mGy. LIMITATIONS: None. FINDINGS: VENTRICLES: Normal size and contour. CEREBRUM: No masses. No hemorrhage. No midline shift. No evidence for acute infarction. Normal gra y/white matter differentiation. No areas of low density in the white matter. CEREBELLUM: No masses. No hemorrhage. No alteration of density. No evidence for acute infarction. EXTRAAXIAL SPACES: No fluid collections. No masses. ORBITS AND GLOBE: No intra- or extraconal masses. Normal contour of globe without masses. CALVARIUM: Craniotomy changes on the left. Aneurysm clip in the left base. PARANASAL SINUSES: No fluid or mucosal thickening. SOFT TISSUES: No mass or hematoma. OTHER: No other significant finding. IMPRESSION: NORMAL BRAIN CT WITHOUT CONTRAST. EVIDENCE OF ACUTE STROKE: NO. COMMENT: Quality ID # [id number]: Final reports with documentation of one or more dose reduction techniques (e.g., Automated exposure control, adjustment of the mA and/or kV according to patient size, use of iterative reconstruction technique) TECHNICAL DOCUMENTATION: JOB ID: [id number] [employer]- All Rights Reserved Reading location - IP/workstation name: [email or web address]
--- NOTE | 2019-01-21 16:34 | RADIOLOGY REPORT (SQ) ---
EXAM DESCRIPTION: CHEST SINGLE VIEW COMPLETED DATE/TIME: 01/21/2019 4:25 pm REASON FOR STUDY: cp COMPARISON: 12/22/2018. EXAM PARAMETERS: NUMBER OF VIEWS: One view. TECHNIQUE: Single frontal radiographic view of the chest acquired. RADIATION DOSE: NA LIMITATIONS: None. FINDINGS: LUNGS AND PLEURA: No opacities, masses or pneumothorax. No pleural effusion. MEDIASTINUM AND HILAR STRUCTURES: No masses. Contour normal. HEART AND VASCULAR STRUCTURES: Heart normal in size. Normal vasculature. BONES: No acute findings. HARDWARE: None in the chest. OTHER: No other significant finding. IMPRESSION: NO ACUTE RADIOGRAPHIC FINDING IN THE CHEST. TECHNICAL DOCUMENTATION: JOB ID: [id number] [employer]- All Rights Reserved Reading location - IP/workstation name: [email or web address]
[2019-01-21 17:12] LABS: ABSOLUTE BASOPHILS # (AUTO) 0.1 10^3/uL (0.0-0.2); ABSOLUTE EOSINOPHILS # (AUTO) 0.1 10^3/uL (0.0-0.6); ABSOLUTE LYMPHOCYTES (AUTO) 2.4 10^3/uL (0.5-4.7); ABSOLUTE MONOCYTES (AUTO) 0.4 10^3/uL (0.1-1.4); ABSOLUTE NEUT (AUTO) 4.9 10^3/uL (1.7-8.2); BASOPHILS % (AUTO) 0.7 % (0-2); EOSINOPHILS % (AUTO) 1.9 % (0-6); HEMATOCRIT 36.5 % (36.0-47.0); HEMOGLOBIN 12.2 g/dL (12.0-15.5); LYMPHOCYTES % (AUTO) 30.5 % (13-45); MEAN CORPUSCULAR HEMOGLOBIN 28.3 pg (27.0-33.4); MEAN CORPUSCULAR HGB CONC 33.3 g/dL (32.0-36.0); MEAN CORPUSCULAR VOLUME 85 fl (80-97); PLATELET COUNT 295 10^3/uL (150-450); RED BLOOD COUNT 4.29 10^6/uL (3.72-5.28); SEGMENTED NEUTROPHILS % (AUTO) 61.9 % (42-78); TOTAL CELLS COUNTED % (AUTO) 100 %; WHITE BLOOD COUNT 7.9 10^3/uL (4.0-10.5)
[2019-01-21 17:26] LABS: ALKALINE PHOSPHATASE 103 U/L (38-126); ANION GAP 9 (5-19); ASPARTATE AMINO TRANSFERASE 21 U/L (14-36); BILIRUBIN,DIRECT 0.3 mg/dL (0.0-0.4); BILIRUBIN,TOTAL 0.4 mg/dL (0.2-1.3); BLOOD UREA NITROGEN 26 mg/dL (7-20); CALCIUM 9.7 mg/dL (8.4-10.2); CARBON DIOXIDE 29 mmol/L (22-30); CHLORIDE 101 mmol/L (98-107); GLUCOSE 88 mg/dL (75-110); POTASSIUM 3.6 mmol/L (3.6-5.0); TOTAL PROTEIN 7.3 g/dL (6.3-8.2)
[2019-01-21 18:52] VITALS: BP 130/65
--- NOTE | 2019-01-23 18:57 | EKG REPORT ---
SEVERITY:- ABNORMAL ECG - SINUS RHYTHM FIRST DEGREE AV BLOCK PROBABLE LEFT ATRIAL ABNORMALITY NONSPECIFIC T ABNORMALITIES, DIFFUSE LEADS : Confirmed by: Pranav Roberts 23-Jan-2019 18:56:12
== END 2019-01-21 18:54 | disposition home or self-care (01) ==
LOC: ER 11:18
DX: G43.909 Migraine, unspecified, not intractable, without status migrainosus (principal); M43.6 Torticollis; R42 Dizziness and giddiness; I50.9 Heart failure, unspecified; I11.0 Hypertensive heart disease with heart failure; Z88.6 Allergy status to analgesic agent; Z88.2 Allergy status to sulfonamides; Z87.442 Personal history of urinary calculi
CPT/HCPCS: 93005; 99284; 96374; 96375; 36415; 85025; 80053; 84484; 71045; 70450; 93010; J1200; A9270; J2765

== ENCOUNTER 2019-02-22 17:54 | Emergency (ER) | payer MEDICARE, MEDICAID ==
--- NOTE | 2019-02-22 18:55 | ER Document Report ---
ED Medical Screen (RME) - General Stated Complaint: RIGHT LEG PAIN, KNOT IN BACK OF LEG Time Seen by Provider: 02/22/19 18:43 Primary Care Provider: ANIBAL CHOUDHARY PA-C [Primary Care Provider] - Follow up as needed Notes: Patient is a 58-year-old female who presents to the emergency department with right leg pain. She states that she has felt not on the posterior aspect of her right leg. She has not noticed any swelling, but has pain to the area. She has a past medical history of DVTs, hypertension, hypokalemia, leg spasms, and GERD. Exam: Nodule noted to right superior popliteal area. I have greeted and performed a rapid initial assessment of this patient. A comprehensive ED assessment and evaluation of the patient, analysis of test results and completion of medical decision making process will be conducted by an additional ED providers. TRAVEL OUTSIDE OF THE [place] IN LAST 30 DAYS: No COUNTRY TRAVELED TO/FROM: [place] - Related Data Allergies/Adverse Reactions: codeine [Codeine] Allergy (Severe, Verified 02/22/19 18:38) Facial/airway swelling, SOB, rash Sulfa (Sulfonamide Antibiotics) Allergy (Severe, Verified 02/22/19 18:38) Facial/airway swelling, SOB, rash hydrocodone [Hydrocodone] Allergy (Verified 02/22/19 18:38) oxycodone [Oxycodone] Allergy (Verified 02/22/19 18:38) Past Medical History - Past Medical History Cardiac Medical History: Reports: Hx Congestive Heart Failure - hospitalized x 2 (Mar 2011 & May 2011), Hx Hypertension Denies: Hx Atrial Fibrillation, Hx Heart Attack, Hx Hypercholesterolemia Pulmonary Medical History: Reports: Hx COPD, Hx Pneumonia - hospitalized x 2, Hx Sleep Apnea Denies: Hx Asthma, Hx Bronchitis, Hx Tuberculosis Neurological Medical History: Reports: Hx Migraine, Hx Seizures - prior to cerebral aneurysm clipping only. Denies: Hx Parkinson's Disease Endocrine Medical History: Reports: Hx Hypothyroidism Renal/ Medical History: Reports: Hx Kidney Stones - "passed" x 3-4 renal calculi (2006). Denies: Hx End Stage Renal Disease, Hx Peritoneal Dialysis GI Medical History: Reports: Hx Gastritis, Hx Gastroesophageal Reflux Disease, Hx Irritable Bowel, Hx Colonoscopy, Hx Endoscopy. Denies: Hx Hiatal Hernia, Hx Ulcer Musculoskeltal Medical History: Reports Hx Arthritis, Reports Hx Musculoskeletal Deformity, Reports Hx Musculoskeletal Trauma, Denies Hx Systemic Lupus Erythematosus Psychiatric Medical History: Reports: Hx Anxiety, Hx Attention Deficit Hyperactivity Disorder, Hx Bipolar Disorder, Hx Depression Denies: Hx Schizophrenia Traumatic Medical History: Reports: Hx Fractures - LEFT wrist Past Surgical History: Reports: Hx Appendectomy - incidental with open arlyn cystectomy 1986, Hx Cardiac Catheterization, Hx Section - 2001, Hx Cholecystectomy - open 1986, Hx Hysterectomy, Hx Neurologic Surgery, Hx Orthopedic Surgery - left knee replacement, left arm / nik. Denies: Hx Bowel Surgery, Hx Mastectomy, Hx Tonsillectomy, Hx Tubal Ligation - Immunizations Hx Diphtheria, Pertussis, Tetanus Vaccination: Yes Physical Exam - Vital signs Vitals: Temp Pulse BP Pulse Ox 97.6 F 61 114/67 96 02/22/19 18:00 02/22/19 18:00 02/22/19 18:00 02/22/19 18:00 Course - Vital Signs Vital signs: Temp Pulse Resp BP Pulse Ox 97.6 F 61 114/67 96 02/22/19 18:00 02/22/19 18:00 02/22/19 18:00 02/22/19 18:00 Doctor's Discharge - Discharge Referrals: ANIBAL CHOUDHARY PA-C [Primary Care Provider] - Follow up as needed
[2019-02-22] MEDS ORDERED: LIDOCAINE 5% (700 MG) TRANSDERMAL ADH..PATCH TP ONE (20:30)
--- NOTE | 2019-02-22 20:38 | ER Document Report ---
ED General - General Chief Complaint: Leg Pain Stated Complaint: RIGHT LEG PAIN, KNOT IN BACK OF LEG Time Seen by Provider: 02/22/19 18:43 Primary Care Provider: ANIBAL CHOUDHARY PA-C [Primary Care Provider] - Follow up as needed Notes: 58-year-old female presents emergency department complaining of a painful lump behind her right knee since Thursday. Patient states that it got worse today, describes it is a sore pain that causes her leg to cramp and have pain and go normal all the way down to her toes. Patient states that while it is known that is also painful all of the same time. Patient states she has no difficulty walking when this happens. Denies any trauma. Denies any history of DVT. Patient is concerned she may have a DVT. TRAVEL OUTSIDE OF THE [place] IN LAST 30 DAYS: No COUNTRY TRAVELED TO/FROM: [place] - Related Data Allergies/Adverse Reactions: codeine [Codeine] Allergy (Severe, Verified 02/22/19 18:38) Facial/airway swelling, SOB, rash Sulfa (Sulfonamide Antibiotics) Allergy (Severe, Verified 02/22/19 18:38) Facial/airway swelling, SOB, rash hydrocodone [Hydrocodone] Allergy (Verified 02/22/19 18:38) oxycodone [Oxycodone] Allergy (Verified 02/22/19 18:38) Past Medical History - General Information source: Patient - Social History Smoking Status: Former Smoker Frequency of alcohol use: None Drug Abuse: None Family History: Reviewed & Not Pertinent, Thyroid Disfunction - Mother. denies: None, Arthritis, CAD, COPD, CVA, DM, Hyperlipidemia, Hypertension, Malignancy, Other Patient has suicidal ideation: No Patient has homicidal ideation: No - Past Medical History Cardiac Medical History: Reports: Hx Congestive Heart Failure - hospitalized x 2 (Mar 2011 & May 2011), Hx Hypertension Denies: Hx Atrial Fibrillation, Hx Heart Attack, Hx Hypercholesterolemia Pulmonary Medical History: Reports: Hx COPD, Hx Pneumonia - hospitalized x 2, Hx Sleep Apnea Denies: Hx Asthma, Hx Bronchitis, Hx Tuberculosis Neurological Medical History: Reports: Hx Migraine, Hx Seizures - prior to cerebral aneurysm clipping only. Denies: Hx Parkinson's Disease Endocrine Medical History: Reports: Hx Hypothyroidism Renal/ Medical History: Reports: Hx Kidney Stones - "passed" x 3-4 renal calculi (2006). Denies: Hx End Stage Renal Disease, Hx Peritoneal Dialysis GI Medical History: Reports: Hx Gastritis, Hx Gastroesophageal Reflux Disease, Hx Irritable Bowel, Hx Colonoscopy, Hx Endoscopy. Denies: Hx Hiatal Hernia, Hx Ulcer Musculoskeletal Medical History: Reports Hx Arthritis, Reports Hx Musculoskeletal Deformity, Reports Hx Musculoskeletal Trauma, Denies Hx Systemic Lupus Erythematosus Psychiatric Medical History: Reports: Hx Anxiety, Hx Attention Deficit Hyperactivity Disorder, Hx Bipolar Disorder, Hx Depression Denies: Hx Schizophrenia Traumatic Medical History: Reports: Hx Fractures - LEFT wrist Past Surgical History: Reports: Hx Appendectomy - incidental with open cholecystectomy 1986, Hx Cardiac Catheterization, Hx Section - 2001, Hx Cholecystectomy - open 1986, Hx Hysterectomy, Hx Neurologic Surgery, Hx Orthopedic Surgery - left knee replacement, left arm / nik. Denies: Hx Bowel Surgery, Hx Mastectomy, Hx Tonsillectomy, Hx Tubal Ligation - Immunizations Hx Diphtheria, Pertussis, Tetanus Vaccination: Yes Review of Systems - Review of Systems EENT: No symptoms reported Cardiovascular: No symptoms reported Respiratory: No symptoms reported Gastrointestinal: No symptoms reported Musculoskeletal: See HPI Skin: No symptoms reported Neurological/Psychological: See HPI -: Yes All other systems reviewed and negative Physical Exam - Vital signs Vitals: Temp Pulse BP Pulse Ox 97.6 F 61 114/67 96 02/22/19 18:00 02/22/19 18:00 02/22/19 18:00 02/22/19 18:00 Interpretation: Normal - General General appearance: Appears well, Alert In distress: None - HEENT Head: Normocephalic, Atraumatic Eyes: Normal Pupils: PERRL Mucous membranes: Moist - Respiratory Respiratory status: No respiratory distress - Cardiovascular Pulses: Normal: Posterior tibial, Dorsalis pedis - Extremities Notes: Just proximal to the popliteal fossa posteriorly and medially on the thigh there is a nodule just under the surface of the skin that is approximately 2 cm in diameter, tender to palpation, nonfluctuant, no skin changes, it is mobile, does not appear to connect to any vascular structures when I palpated. She has full range of motion of her right lower extremity, 5 out of 5 strength including with great toe raising strength, sensation is intact, no numbness, no weakness. - Skin Skin Temperature: Warm Skin Moisture: Dry Skin Color: Normal Course - Re-evaluation Re-evalutation: 10/08/19 20:39 Doppler ultrasound is negative. No remarkable soft tissue abnormality was seen. No Norton's cyst was seen. Seeing as this point causes the patient to have some cramping pains I suspect this may be muscular in origin, treat with lidocaine patch, warm compresses and muscle relaxers. Patient is agreeable to this plan, discharged home. - Vital Signs Vital signs: Temp Pulse Resp BP Pulse Ox 97.6 F 61 114/67 96 02/22/19 18:00 02/22/19 18:00 02/22/19 18:00 02/22/19 18:00 Discharge - Discharge Clinical Impression: Right leg pain, Subcutaneous nodule of right lower leg Condition: Stable Disposition: HOME, SELF-CARE Additional Instructions: Today we did not find any blood clot on your ultrasound. I do not know exactly what the lump is behind her knee however we did not see it on ultrasound today. Since it is causing you to have cramping pains in your legs I suggested that we put you on a muscle relaxer that is slightly less strong than the Valium that you have to use from prior time to time. Please use the Robaxin 1 to 2 tablets every 8 hours as needed for muscle spasm. Please also use warm compresses 20 minutes a few times a day while you are awake. You may also place a lidocaine patch on this spot at night, you may only leave it on for 12 hours and that it must be removed. Do not put a warm compress over top of the lidocaine patch. Prescriptions: Methocarbamol [Robaxin 750 mg Tablet] 1 - 2 tab PO Q8HP PRN #30 tablet PRN Reason: Lidocaine [Lidoderm 5% (700 mg) Transdermal Patch] 1 patch TP DAILY #14 adh..patch Referrals: ANIBAL CHOUDHARY PA-C [Primary Care Provider] - Follow up as needed
[2019-02-22 20:59] VITALS: BP 121/55
--- NOTE | 2019-02-23 08:01 | XCELERA REPORT ---
[address] [facility] [id number] Lower Extremity Venous Evaluation Procedure: Color flow and duplex imaging of the veins of the right lower extremity as well as the left Common Femoral vein. Right Sided Venous Evaluation Normal vessel filling wall to wall, compression and augmentation as well as Colour flow down to the infrageniculate veins. Left Sided Venous Evaluation The left common femoral vein is fully compressible. Spontaneous and phasic flow is present in the left common femoral vein. Interpretation Summary No duplex evidence of DVT or obstruction in the right lower extremity nor in the left Common Femoral vein. Name: SHAHNAZ BOWENS Nick Age: 58 yrs Gender: Female : 1960 Patient Status: Emergency Patient Location: ER Study Date: 02/22/2019 07:44 PM Reason For Study: RLE pain; please also evaluate nodule Ordering Physician: MICHAEL GARZA Performed By: Caroline Soto : MICHAEL GARZA > Mode oWods
== END 2019-02-22 21:10 | disposition home or self-care (01) ==
LOC: ER 17:54
DX: R22.41 Localized swelling, mass and lump, right lower limb (principal); M79.604 Pain in right leg; I10 Essential (primary) hypertension; J44.9 Chronic obstructive pulmonary disease, unspecified; Z87.891 Personal history of nicotine dependence; Z88.5 Allergy status to narcotic agent; Z88.2 Allergy status to sulfonamides
CPT/HCPCS: 93971; 99283

== ENCOUNTER 2019-04-27 10:59 | Emergency (ER) | payer OTHER, MEDICARE, MEDICAID ==
[2019-04-27] MEDS ORDERED: ACETAMINOPHEN 325 MG TABLET PO ONE (12:03)
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
[2019-04-27 12:49] LABS: ABSOLUTE EOSINOPHILS # (AUTO) 0.2 10^3/uL (0.0-0.6); ABSOLUTE MONOCYTES (AUTO) 0.3 10^3/uL (0.1-1.4); ABSOLUTE NEUT (AUTO) 2.9 10^3/uL (1.7-8.2); BASOPHILS % (AUTO) 0.9 % (0-2); EOSINOPHILS % (AUTO) 2.8 % (0-6); HEMATOCRIT 38.7 % (36.0-47.0); HEMOGLOBIN 12.8 g/dL (12.0-15.5); LYMPHOCYTES % (AUTO) 37.2 % (13-45); MEAN CORPUSCULAR HEMOGLOBIN 29.2 pg (27.0-33.4); MEAN CORPUSCULAR HGB CONC 33.2 g/dL (32.0-36.0); MEAN CORPUSCULAR VOLUME 88 fl (80-97); MONOCYTES % (AUTO) 5.6 % (3-13); PLATELET COUNT 316 10^3/uL (150-450); RED BLOOD COUNT 4.39 10^6/uL (3.72-5.28); RED CELL DISTRIBUTION WIDTH 13.9 % (11.5-14.0); SEGMENTED NEUTROPHILS % (AUTO) 53.5 % (42-78); TOTAL CELLS COUNTED % (AUTO) 100 %; WHITE BLOOD COUNT 5.4 10^3/uL (4.0-10.5)
--- NOTE | 2019-04-27 12:58 | RADIOLOGY REPORT (SQ) ---
EXAM DESCRIPTION: CHEST 2 VIEWS COMPLETED DATE/TIME: 04/27/2019 12:49 pm REASON FOR STUDY: chest pain COMPARISON: PA view of the chest from 01/24/2019 EXAM PARAMETERS: NUMBER OF VIEWS: two views TECHNIQUE: PA and lateral views of the chest were obtained. RADIATION DOSE: NA LIMITATIONS: none FINDINGS: LUNGS AND PLEURA: No consolidation, pleural effusion or pneumothorax. MEDIASTINUM AND HILAR STRUCTURES: No mediastinal or hilar contour abnormality. HEART AND VASCULAR STRUCTURES: The cardiac silhouette and pulmonary vasculature are within normal lang its. BONES: No acute findings. HARDWARE: None in the chest. OTHER: Cholecystectomy clips in the right upper quadrant. IMPRESSION: No acute cardiopulmonary process. TECHNICAL DOCUMENTATION: JOB ID: [id number] [employer]- All Rights Reserved Reading location - IP/workstation name: [email or web address]
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
[2019-04-27 13:15] LABS: ALBUMIN 4.4 g/dL (3.5-5.0); ALKALINE PHOSPHATASE 82 U/L (38-126); ANION GAP 10 (5-19); ASPARTATE AMINO TRANSFERASE 22 U/L (14-36); BILIRUBIN,DIRECT 0.2 mg/dL (0.0-0.4); BILIRUBIN,TOTAL 0.6 mg/dL (0.2-1.3); BLOOD UREA NITROGEN 16 mg/dL (7-20); CALCIUM 9.7 mg/dL (8.4-10.2); CARBON DIOXIDE 27 mmol/L (22-30); CHLORIDE 104 mmol/L (98-107); GLUCOSE 92 mg/dL (75-110); POTASSIUM 4.2 mmol/L (3.6-5.0); TOTAL PROTEIN 7.9 g/dL (6.3-8.2)
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
[2019-04-27 14:11] VITALS: BP 154/82
--- NOTE | 2019-04-27 17:50 | EKG REPORT ---
SEVERITY:- BORDERLINE ECG - SINUS RHYTHM BORDERLINE T ABNORMALITIES, DIFFUSE LEADS : Confirmed by: Francois Up MD 27-Apr-2019 17:49:02
== END 2019-04-27 14:11 | disposition home or self-care (01) ==
LOC: ER 10:59
DX: S80.01XA Contusion of right knee, initial encounter (principal); V43.52XA Car driver injured in collision with other type car in traffic accident, initial encounter; Z88.6 Allergy status to analgesic agent; Z88.2 Allergy status to sulfonamides
CPT/HCPCS: 36415; 71046; 80053; 84484; 85025; 93005; 93010; 99284

== ENCOUNTER 2019-09-04 19:38 | Emergency (ER) | payer MEDICARE, MEDICAID ==
[2019-09-04] MEDS ORDERED: NORMAL SALINE 1000 ML 1,000 ML IV ONE ×2 (20:00→21:54)
--- NOTE | 2019-09-04 20:00 | ER Document Report ---
ED Medical Screen (RME) - General Chief Complaint: Sore Throat Stated Complaint: SORE THROAT/LIGHTHEADED/DIZZY Primary Care Provider: ANIBAL CHOUDHARY PA-C [Primary Care Provider] - Follow up as needed Notes: Patient is a 59-year-old white female with a past medical history of hypertension, reflux esophagitis who presents to the emergency department the chief complaint of sore throat for the past 2 days, primarily involving the left side, worse with swallowing and oral intake. She states and accompanied to this over the past several days she has had episodes of dizziness, shaking weakness and cold sweats. She states she has had problems with her blood pressure. She takes Lasix and carvedilol but reports no recent changes to those medications. She states today she is just feeling very drained as if she went "on a 50 mile hike". She denies any chest pain, headache or shortness of breath. I have treated and performed a rapid initial assessment of this patient. A comprehensive ED assessment and evaluation of the patient, analysis of test results and completion of medical decision making process will be conducted by additional ED providers. PHYSICAL EXAMINATION: GENERAL: Well-appearing, well-nourished and in no acute distress. A&Ox4. Answers questions appropriately. TRAVEL OUTSIDE OF THE [place] IN LAST 30 DAYS: No - Related Data Allergies/Adverse Reactions: codeine [Codeine] Allergy (Severe, Verified 02/22/19 18:38) Facial/airway swelling, SOB, rash Sulfa (Sulfonamide Antibiotics) Allergy (Severe, Verified 02/22/19 18:38) Facial/airway swelling, SOB, rash hydrocodone [Hydrocodone] Allergy (Verified 02/22/19 18:38) oxycodone [Oxycodone] Allergy (Verified 02/22/19 18:38) Past Medical History - Past Medical History Cardiac Medical History: Reports: Hx Congestive Heart Failure - hospitalized x 2 (Mar 2011 & May 2011), Hx Hypertension Denies: Hx Atrial Fibrillation, Hx Heart Attack, Hx Hypercholesterolemia Pulmonary Medical History: Reports: Hx COPD, Hx Pneumonia - hospitalized x 2, Hx Sleep Apnea Denies: Hx Asthma, Hx Bronchitis, Hx Tuberculosis Neurological Medical History: Reports: Hx Migraine, Hx Seizures - prior to cerebral aneurysm clipping only. Denies: Hx Parkinson's Disease Endocrine Medical History: Reports: Hx Hypothyroidism Renal/ Medical History: Reports: Hx Kidney Stones - "passed" x 3-4 renal calculi (2006). Denies: Hx End Stage Renal Disease, Hx Peritoneal Dialysis GI Medical History: Reports: Hx Gastritis, Hx Gastroesophageal Reflux Disease, Hx Irritable Bowel, Hx Colonoscopy, Hx Endoscopy. Denies: Hx Hiatal Hernia, Hx Ulcer Musculoskeltal Medical History: Reports Hx Arthritis, Reports Hx Musculoskeletal Deformity, Reports Hx Musculoskeletal Trauma, Denies Hx Systemic Lupus Erythem atosus Psychiatric Medical History: Reports: Hx Anxiety, Hx Attention Deficit Hyperactivity Disorder, Hx Bipolar Disorder, Hx Depression Denies: Hx Schizophrenia Traumatic Medical History: Reports: Hx Fractures - LEFT wrist Past Surgical History: Reports: Hx Appendectomy - incidental with open cholecystectomy 1986, Hx Cardiac Catheterization, Hx Section - 2001, Hx Cholecystectomy - open 1986, Hx Hysterectomy, Hx Neurologic Surgery, Hx Orthopedic Surgery - left knee replacement, left arm / nik. Denies: Hx Bowel Surgery, Hx Mastectomy, Hx Tonsillectomy, Hx Tubal Ligation - Immunizations Hx Diphtheria, Pertussis, Tetanus Vaccination: Yes Physical Exam - Vital signs Vitals: Temp Pulse Resp BP Pulse Ox 97.4 F 76 20 95/40 L 97 09/04/19 19:42 09/04/19 19:42 09/04/19 19:42 09/04/19 19:42 09/04/19 19:42 Course - Vital Signs Vital signs: Temp Pulse Resp BP Pulse Ox 97.4 F 76 20 95/40 L 97 09/04/19 19:42 09/04/19 19:42 09/04/19 19:42 09/04/19 19:42 09/04/19 19:42 Doctor's Discharge - Discharge Referrals: ANIBAL CHOUDHARY PA-C [Primary Care Provider] - Follow up as needed
[2019-09-04 20:41] LABS: ABSOLUTE EOSINOPHILS # (AUTO) 0.3 10^3/uL (0.0-0.6); ABSOLUTE LYMPHOCYTES (AUTO) 2.7 10^3/uL (0.5-4.7); ABSOLUTE MONOCYTES (AUTO) 0.4 10^3/uL (0.1-1.4); ABSOLUTE NEUT (AUTO) 4.2 10^3/uL (1.7-8.2); BASOPHILS % (AUTO) 0.6 % (0-2); EOSINOPHILS % (AUTO) 3.7 % (0-6); HEMATOCRIT 31.9 % (36.0-47.0); HEMOGLOBIN 10.9 g/dL (12.0-15.5); LYMPHOCYTES % (AUTO) 35.1 % (13-45); MEAN CORPUSCULAR HEMOGLOBIN 30.6 pg (27.0-33.4); MEAN CORPUSCULAR HGB CONC 34.1 g/dL (32.0-36.0); MEAN CORPUSCULAR VOLUME 90 fl (80-97); MONOCYTES % (AUTO) 5.1 % (3-13); PLATELET COUNT 273 10^3/uL (150-450); RED BLOOD COUNT 3.57 10^6/uL (3.72-5.28); RED CELL DISTRIBUTION WIDTH 12.7 % (11.5-14.0); SEGMENTED NEUTROPHILS % (AUTO) 55.5 % (42-78); TOTAL CELLS COUNTED % (AUTO) 100 %; WHITE BLOOD COUNT 7.6 10^3/uL (4.0-10.5)
[2019-09-04 20:59] LABS: ALBUMIN 3.7 g/dL (3.5-5.0); ALKALINE PHOSPHATASE 97 U/L (38-126); ANION GAP 7 (5-19); ASPARTATE AMINO TRANSFERASE 17 U/L (14-36); BILIRUBIN,DIRECT 0.1 mg/dL (0.0-0.4); BILIRUBIN,TOTAL 0.3 mg/dL (0.2-1.3); BLOOD UREA NITROGEN 35 mg/dL (7-20); CARBON DIOXIDE 25 mmol/L (22-30); CHLORIDE 105 mmol/L (98-107); GLUCOSE 134 mg/dL (75-110); POTASSIUM 3.9 mmol/L (3.6-5.0); TOTAL PROTEIN 6.4 g/dL (6.3-8.2)
--- NOTE | 2019-09-04 21:01 | RADIOLOGY REPORT (SQ) ---
EXAM DESCRIPTION: XR CHEST 1 VIEW COMPLETED DATE/TME: 09/04/2019 19:58 CLINICAL HISTORY: 59 years Female weakness, hypoTN COMPARISON: 01/21/2019 FINDINGS: The cardiomediastinal silhouette appears unremarkable. No consolidating infiltrates or pleural effusions. No pneumothorax. Atelectasis in the lung bases. IMPRESSION: No acute abnormality is identified.
[2019-09-04] MEDS ORDERED: DEXAMETHASONE SOD PHOS INJ 10 MG/1 ML VIAL IV ONE (21:55)
[2019-09-04] MEDS ORDERED: KETOROLAC TROMETHAMINE INJ/PF 30 MG/1 ML SDV IV ONE (21:55)
--- NOTE | 2019-09-04 22:58 | ER Document Report ---
Entered by KAYLIE PONCE SCRIBE 09/04/19 [id number] Acting as scribe for:KELLI CID IV, MD ED ENT - General Chief Complaint: Sore Throat Stated Complaint: SORE THROAT/LIGHTHEADED/DIZZY Time Seen by Provider: 09/04/19 21:45 Primary Care Provider: ANIBAL CHOUDHARY PA-C [Primary Care Provider] - Follow up as needed Mode of Arrival: Ambulatory Information source: Patient Notes: This 59 year old female patient presents to the ED today with complaints of sore throat for the past x2 days. Patient states that her throat hurts primarily on the left side and that it is worse with swallowing and oral intake. She reports that she has also been having headaches and episodes of dizziness and lightheadedness after eating. She also notes diarrhea, but denies nausea or vomiting. She reports a history of hypertension and states that she has been epperson ving problems with her blood pressure. She notes that takes she Lasix and Carvedilol. Denies chest pain or any respiratory symptoms. TRAVEL OUTSIDE OF THE [place] IN LAST 30 DAYS: No - Related Data Allergies/Adverse Reactions: codeine [Codeine] Allergy (Severe, Verified 02/22/19 18:38) Facial/airway swelling, SOB, rash Sulfa (Sulfonamide Antibiotics) Allergy (Severe, Verified 02/22/19 18:38) Facial/airway swelling, SOB, rash hydrocodone [Hydrocodone] Allergy (Verified 02/22/19 18:38) oxycodone [Oxycodone] Allergy (Verified 02/22/19 18:38) Past Medical History - General Information source: Patient, [facility] Records - Social History Smoking Status: Former Smoker Cigarette use (# per day): No Smoking Education Provided: No Family History: Reviewed & Not Pertinent, Thyroid Disfunction - Mother Patient has suicidal ideation: No Patient has homicidal ideation: No - Past Medical History Cardiac Medical History: Reports: Hx Congestive Heart Failure - hospitalized x 2 (Mar 2011 & May 2011), Hx Hypertension Pulmonary Medical History: Reports: Hx COPD, Hx Pneumonia - hospitalized x 2, Hx Sleep Apnea Neurological Medical History: Reports: Hx Migraine, Hx Seizures - prior to cerebral aneurysm clipping only Endocrine Medical History: Reports: Hx Hypothyroidism Renal/ Medical History: Reports: Hx Kidney Stones - "passed" x 3-4 renal calculi (2006) GI Medical History: Reports: Hx Gastritis, Hx Gastroesophageal Reflux Disease, Hx Irritable Bowel, Hx Colonoscopy, Hx Endoscopy Musculoskeletal Medical History: Reports Hx Arthritis, Reports Hx Musculoskeletal Deformity, Reports Hx Musculoskeletal Trauma Psychiatric Medical History: Reports: Hx Anxiety, Hx Attention Deficit Hyper activity Disorder, Hx Bipolar Disorder, Hx Depression Traumatic Medical History: Reports: Hx Fractures - LEFT wrist Past Surgical History: Reports: Hx Appendectomy - incidental with open cholecystectomy 1986, Hx Cardiac Catheterization, Hx Section - 2001, Hx Cholecystectomy - open 1986, Hx Hysterectomy, Hx Neurologic Surgery, Hx Orthopedic Surgery - left knee replacement, left arm / nik - Immunizations Hx Diphtheria, Pertussis, Tetanus Vaccination: Yes Review of Systems - Review of Systems Constitutional: No symptoms reported EENT: See HPI, Throat pain Cardiovascular: See HPI, Dizziness, Lightheaded. denies: Chest pain Respiratory: See HPI. denies: Cough, Short of breath Gastrointestinal: See HPI, Diarrhea. denies: Nausea, Vomiting Genitourinary: No symptoms reported Female Genitourinary: No symptoms reported Musculoskeletal: No symptoms reported Skin: No symptoms reported Hematologic/Lymphatic: No symptoms reported Neurological/Psychological: See HPI, Headaches -: Yes All other systems reviewed and negative Physical Exam - Vital signs Vitals: Temp Pulse Resp BP Pulse Ox 97.4 F 76 20 95/40 L 97 09/04/19 19:42 09/04/19 19:42 09/04/19 19:42 09/04/19 19:42 09/04/19 19:42 - General General appearance: Alert, Other - Hoarse voice In distress: None - HEENT Head: Normocephalic Eyes: Normal Pupils: PERRL Pharynx: Erythema, Other - No uvular deviation, evidence of peritonisllar swelling, trismus, or submandibular swelling.. No: Exudate - Respiratory Respiratory status: No respiratory distress Chest status: Nontender Breath sounds: Normal. No: Stridor Chest palpation: Normal - Cardiovascular Rhythm: Regular Heart sounds: Normal auscultation Murmur: No Friction rub: No Gallop: None auscultated - Abdominal Inspection: Normal Distension: No distension Bowel sounds: Normal Tenderness: Nontender - Abdomen soft Organomegaly: No organomegaly - Back Back: Normal, Nontender - Extremities General upper extremity: Normal inspection General lower extremity: Normal inspection - Neurological Neuro grossly intact: Yes - Psychological Associated symptoms: Normal affect, Normal mood - Skin Skin Temperature: Warm Skin Moisture: Dry Skin Color: Normal Course - Re-evaluation Re-evalutation: 09/04/19 23:02 Results of ED MSE discussed with patient. All questions were answered prior to discharge. Emergency signs and symptoms, reasons to return to the ED discussed with patient. - Vital Signs Vital signs: Temp Pulse Resp BP Pulse Ox 97.4 F 76 15 105/51 L 100 09/04/19 19:42 09/04/19 19:42 09/04/19 22:31 09/04/19 22:31 09/04/19 22:31 - Laboratory Result Diagrams: 09/04/19 20:15 09/04/19 20:15 Laboratory results interpreted by me: 09/04/19 09/04/19 20:15 20:15 RBC 3.57 L Hgb 10.9 L Hct 31.9 L BUN 35 H Creatinine 1.36 H Est GFR ( Amer) 48 L Est GFR (MDRD) Non-Af 40 L Glucose 134 H - Diagnostic Test Radiology reviewed: Reports reviewed Discharge - Discharge Clinical Impression: Dehydration Acute pharyngitis Qualifiers: Pharyngitis/tonsillitis etiology: unspecified etiology Qualified Code(s): J02.9 - Acute pharyngitis, unspecified Condition: Good Disposition: HOME, SELF-CARE Additional Instructions: Return to the Emergency Department without delay if any worse. HOME CARE INSTRUCTIONS & INFORMATION: Thank you for choosing us for your medical needs. We hope you're satisfied with the care you received. After you leave, you must properly care for your problem and, at the same time, observe its progress. Any condition can change. Some illnesses can change rapidly over hours or days. If your condition worsens, return to the Emergency Department or see your physician promptly. ABOUT YOUR X-RAYS AND EKG'S: If you had an EKG or X-rays taken, they have been read by the Emergency Physician. The X-rays and EKG's will also be read by a Radiologist or Private Secretary within 24 hours. If discrepancies are noted, you will be notified by telephone. Please be certain the ED has a correct telephone number & address where you can be reached. Also, realize that some fractures or abnormalities do not show up on initial X-rays. If your symptoms continue, see your physician. ABOUT YOUR LABORATORY TEST: If you had laboratory tests, the results have been reviewed by the Emergency Physician. Some test results (for example cultures) may not be available for several days. You will be contacted if any test result shows you need additional treatment. Please be certain the ED has a correct telephone number and address where you can be reached. ABOUT YOUR MEDICATIONS: You will receive instructions on how to take your medicine on the prescription label you receive. Additional information may be provided by the Pharmacy. If you have questions afterwards, call the ED for clarification or further instructions. Some prescribed medications may cause drowsiness. Do not perform tasks such as driving a car or operating machinery without consulting your Pharmacist. If you feel you need a refill of pain medication, your condition will need re-evaluation. Please do not call for a refill of any medication. ABOUT YOUR SIGNATURE: Signature of this document acknowledges to followin. Understanding that you received emergency treatment and that you may be released before al medical problems are known or treated. Please be certain the ED has a correct phone number & address where you can be reached. 2. Acknowledgement that you will arrange for follow-up care as recommended. 3. Authorization for the Emergency Physician to provide information to your follow-up Physician in order to maximize your care. AT ANY TIME, IF YOUR SYMPTOMS CHANGE SIGNIFICANTLY OR WORSEN OR YOU DEVELOP NEW SYMPTOMS, RETURN TO THE EMERGENCY DEPARTMENT IMMEDIATELY FOR RE-EVALUATION. OUR GOAL IS TO PROVIDE EXCELLENT MEDICAL CARE! WE HOPE THAT WE HAVE MET YOUR EXPECTATIONS DURING YOUR EMERGENCY DEPARTMENT VISIT AND THAT YOU FEEL YOU HAVE RECEIVED EXCELLENT CARE! Dehydration Dehydration can result from vomiting or diarrhea, fever, or decreased intake of fluids. If severe, hospitalization and intravenous fluids may be required. Most cases are treated at home with fluids by mouth. For the next 24 hours, drink lots of clear fluids. In mild cases, this can be soda pop or sports drinks. For more severe dehydration, the doctor may recommend special fluids such as Pedialyte or Lytren. Try to get three liters (3 quarts) of fluid per day. If vomiting occurs, continue to drink the fluids frequently (every 15 to 20 minutes), but in small amounts (one or two ounces). Depending on the type of dehydration, the doctor may prescribe antinausea medicine or potassium replacements. Call the doctor or return for re-examination if you become progressively weak, vomit repeatedly, or have other new symptoms. Sore Throat Sore throats may be caused by viruses, bacteria, or fungi. Most are due to a virus, and must get better on their own. Bacterial sore throats, particularly those due to "strep," need treatment with antibiotics. If an antibiotic is prescribed, be sure to take the medication for a full 10 days. Failure to take the antibiotic can result in complications such as rheumatic fever. Sometimes, an injection of antibiotics is given instead of pills or liquid. This single "shot" is equal in effectiveness to the oral medication. To relieve symptoms, take acetaminophen for pain. Sip clear liquids frequently, or eat popsicles or ice chips. Anesthetic sprays or lozenges may help. Make sure the air in the room is not too dry. Avoid using decongestants or antihistamines. Call the doctor if there is no improvement in two days, or if you have difficulty breathing, increasing throat pain, high fever, rash, or frequent vom iting. Forms: Return to Work Referrals: ANIBAL CHOUDHARY PA-C [Primary Care Provider] - Follow up as needed I personally performed the services described in the documentation, reviewed and edited the documentation which was dictated to the scribe in my presence, and it accurately records my words and actions.
[2019-09-05 00:14] VITALS: BP 119/61
--- NOTE | 2019-09-05 06:32 | EKG REPORT ---
SEVERITY:- NORMAL ECG - SINUS RHYTHM : Confirmed by: Francois Up MD 05-Sep-2019 06:31:31
== END 2019-09-05 00:20 | disposition home or self-care (01) ==
LOC: ER 19:38
DX: J02.9 Acute pharyngitis, unspecified (principal); E86.0 Dehydration; R42 Dizziness and giddiness; I11.0 Hypertensive heart disease with heart failure; I50.9 Heart failure, unspecified; Z88.6 Allergy status to analgesic agent; Z88.2 Allergy status to sulfonamides
CPT/HCPCS: 93005; 99283; 96361; 96374; 96375; 36415; 87070; 87880; 85025; 80053; 84484; 71045; 93010; J1885; J7030; J1100

== ENCOUNTER 2019-12-03 04:11 | Emergency (ER) | payer MEDICARE, MEDICAID ==
[2019-12-03 04:25] VITALS: BP 124/73
== END 2019-12-03 05:40 | disposition left against medical advice (07) ==
LOC: ER 04:11
DX: Z53.21 Procedure and treatment not carried out due to patient leaving prior to being seen by health care provider (principal); M79.605 Pain in left leg

== ENCOUNTER → 2019-12-12 | Outpatient (CLI) | payer MEDICARE, MEDICAID ==
[~2019-12-12] MED LIST: REGADENOSON INJ 0.4 MG/5 ML DISP.SYRIN IV ONE
--- NOTE | 2019-12-12 13:55 | DRAGON STRESS TEST REPORT ---
Pharmacological nuclear stress test Date: December 12, 2019 Referring physician: Augie Warren PA-C Performing physician: Oh Hazel MD Indication: Chest pain Clinical history 59-year-old lady who is a former smoker with medical history significant for systemic hypertension and dyslipidemia who presents with chest pain. Procedure The patient presented to the stress lab. Initially rest images were obtained according to standard protocol after the injection of 15.89millicurie technetium 99m sestamibi. Subsequently the patient underwent pharmacological stress utilizing 0.4 mg of regadenoson intravenously. The patient's EKG and vital signs were monitored throughout the procedure. Subsequently patient was injected with 45.9 millicuries of technetium 99m sestamibi. After a period of rest, stress images were obtained according to standard protocol. EKG showed sinus rhythm at beats per minute. The patient's stress EKG did not show any evidence for myocardial ischemia. There were no arrhythmias observed. Raw as well as processed rest and stress images were reviewed. There was mild to moderate gut uptake which did not interfere with the study. There is a small to medium size, moderate intensity, partially reversible defect in the distal anterior wall and left ventricular apex.. There is normal contractility post- rest. The calculated ejection fraction is 63%. The TID ratio is 1.05. Conclusion The stress EKG is negative for myocardial ischemia There is small to medium size, moderate intensity, partially reversible defect in the distal anterior wall and left ventricular apex. This finding suggests myocardial ischemia in the LAD distribution. There is normal contractility post-stress. The gated left ventricular ejection fraction is 63 %. The patient will be given an appointment to discuss these results. [facility]
--- NOTE | 2019-12-12 17:15 | XCELERA REPORT ---
[address] [address] Transthoracic Echocardiogram Report Name: SHAHNAZ BOWENS Age: 59 yrs Gender: Female : 1960 Patient Status: Outpatient Patient Location: RAD Study Date: 12/12/2019 10:13 AM History: Chest pain Height: 68 in Weight: 253 lb BSA: 2.3 m2 Procedure: A complete two-dimensional transthoracic echocardiogram was performed (2D, M-mode, spectral and color flow Doppler). The study was technically difficult with many images being suboptimal in quality. Reason For Study: CHF, CHRONIC ISCHEMIC HEART DISEASE Previous Evaluation: A previous study was performed on 03/14/2015-Low normal LVEF. History: Shortness of breath. CHF. Ordering Physician: DESTIN HAZEL Performed By: Ander Holliday Interpretation Summary Left ventricular systolic function is normal. The Ejection Fraction estimate is 55-60% The right ventricle is normal in size and function. There is a trace amount of mitral regurgitation There is no aortic valve stenosis There is a trace amount of tricuspid regurgitation Doppler findings do not suggest pulmonary hypertension. There is no pericardial effusion. MMode/2D Measurements & Calculations RVDd: 2.9 cm LVIDd: 5.4 cm FS: 30.8 % Ao root diam: 2.7 cm IVSd: 0.86 cm LVIDs: 3.7 cm EDV(Teich): 141.3 ml Ao root area: 5.7 cm2 LVPWd: 0.93 cm ESV(Teich): 59.4 ml LA dimension: 3.7 cm EF(Teich): 57.9 % Doppler Measurements & Calculations MV E max mely: MV P1/2t max mely: Ao V2 max: LV V1 max P.0 cm/sec 90.7 cm/sec 116.7 cm/sec 4.9 mmHg MV A max mely: MV P1/2t: 74.3 msec Ao max PG: LV V1 max: 102.2 cm/sec MVA(P1/2t): 3.0 cm2 5.5 mmHg 110.7 cm/sec MV E/A: 0.89 MV dec slope: 357.7 cm/sec2 MV dec time: 0.20 sec PA V2 max: PI end-d mely: TR max mely: MV P1/2t-pr_phl: 84.4 cm/sec 94.5 cm/sec 242.5 cm/sec 74.3 msec PA max P.8 mmHg TR max P.5 mmHg Left Ventricle The left ventricle is grossly normal size. There is borderline concentric left ventricular hypertrophy. Left ventricular systolic function is normal. The Ejection Fraction estimate is 55-60%. Doppler measurements suggest impaired left ventricular relaxation, which is associated with grade I/IV or mild diastolic dysfunction. No regional wall motion abnormalities noted. Right Ventricle The right ventricle is normal in size and function. Atria The right atrium is normal. The left atrium is borderline dilated. Mitral Valve Calcified mitral apparatus. There is no mitral valve stenosis. There is a trace amount of mitral regurgitation. Aortic Valve The aortic valve opens well. The aortic valve is sclerotic, but shows no functional abnormality. There is no aortic valve stenosis. No aortic regurgitation is present. Tricuspid Valve The tricuspid valve is normal in structure and function. There is a trace amount of tricuspid regurgitation. Doppler findings do not suggest pulmonary hypertension. RSVP is equal to 30 mm Hg. Pulmonic Valve The pulmonic valve is not well seen, but is grossly normal. There is a mild amount of pulmonic regurgitation. Great Vessels There is aortic root sclerosis/calcification. The aortic root is normal size. Effusions There is no pericardial effusion. : DESTIN HAZEL Anil
== END ==
LOC: RAD 07:36
PROVIDERS: ATTEND Internal Medicine
DX: I11.0 Hypertensive heart disease with heart failure (principal); I50.9 Heart failure, unspecified; I25.9 Chronic ischemic heart disease, unspecified
CPT/HCPCS: 93306; 93017; 78452; A9500; J2785; Q9969

== ENCOUNTER → 2020-03-07 | Outpatient (CLI) | payer MEDICARE, MEDICAID ==
--- NOTE | 2020-03-07 09:31 | ER RDC ASSESSMENT REPORT ---
Intake - In the Last 14 days Have you traveled outside [place]?: No Have you been in close contact with someone CONFIRMED: Yes Worked in Healthcare?: No - Symptoms Subjective Fever([place] feverish): No Chills: No Muscule Aches: No Runny Nose: Yes Sore Throat: No Cough (New or worsening chronic cough): No Shortness of breath: No Nausea or Vomiting: No Headache: No Abdominal Pain: No Diarrhea(3 or more loose stools in last 24 hours): No - Do you have any of the following Chronic lung disease: Asthma or emphysema or COPD: Yes Cystic Fibrosis: No Diabetes: No High Blood Pressure: Yes Cardiovascular Disease: Yes Chronic Kidney Disease: No Chronic Liver Disease: No Chronic blood disorder like Sickle Cell Disease: No Weak immune system due to disease or medication: No Neurologic condition that limits movement: No Developmental delay - Moderate to Severe: No Recent (within past 2 weeks) or current : No Morbid Obesity (>100 pounds over ideal weight): No - Objective Temperature: 97.7 F Pulse Rate: 66 Respiratory Rate: 15 Blood Pressure: 124/94 O2 Sat by Pulse Oximetry: 97 Objective: Given above, testing performed: covid Disposition: Home; Selfcare General - General Stated Complaint: covid testing Time Seen by Provider: 03/07/20 09:25 - HPI Notes: 59-year-old female presents to [facility] clinic for COVID-19 testing. Patient reports exposure to Covid positive individual within the past week. Patient reports only symptoms being those of sinus drainage and sinus congestion which she gets at this time every year due to seasonal allergies. Denies any fever, chills, headache, sore throat, cough, shortness of breath, or GI upset. - Related Data Allergies/Adverse Reactions: codeine [Codeine] Allergy (Severe, Verified 02/22/19 18:38) Facial/airway swelling, SOB, rash Sulfa (Sulfonamide Antibiotics) Allergy (Severe, Verified 02/22/19 18:38) Facial/airway swelling, SOB, rash hydrocodone [Hydrocodone] Allergy (Verified 02/22/19 18:38) oxycodone [Oxycodone] Allergy (Verified 02/22/19 18:38) Past Medical History - General Information source: Patient - Social History Smoking Status: Former Smoker Family History: Reviewed & Not Pertinent, Thyroid Disfunction - Mother - Past Medical History Cardiac Medical History: Reports: Hx Congestive Heart Failure - hospitalized x 2 (Mar 2011 & May 2011), Hx Hypertension Denies: Hx Atrial Fibrillation, Hx Heart Attack, Hx Hypercholesterolemia Pulmonary Medical History: Reports: Hx COPD, Hx Pneumonia - hospitalized x 2, Hx Sleep Apnea Denies: Hx Asthma, Hx Bronchitis, Hx Tuberculosis EENT Medical History: Reports: None Neurological Medical History: Reports: Hx Migraine, Hx Seizures - prior to cerebral aneurysm clipping only. Denies: Hx Parkinson's Disease Endocrine Medical History: Reports: Hx Hypothyroidism Renal/ Medical History: Reports: Hx Kidney Stones - "passed" x 3-4 renal calculi (2006). Denies: Hx End Stage Renal Disease, Hx Peritoneal Dialysis Malignancy Medical History: Reports: None GI Medical History: Reports: Hx Gastritis, Hx Gastroesophageal Reflux Disease, Hx Irritable Bowel, Hx Colonoscopy, Hx Endoscopy. Denies: Hx Hiatal Hernia, Hx Ulcer Musculoskeletal Medical History: Reports Hx Arthritis, Reports Hx Musculoskeletal Deformity, Reports Hx Musculoskeletal Trauma, Denies Hx Systemic Lupus Erythematosus Skin Medical History: Reports None Psychiatric Medical History: Reports: Hx Anxiety, Hx Attention Deficit Hyperactivity Disorder, Hx Bipolar Disorder, Hx Depression Denies: Hx Schizophrenia Traumatic Medical History: Reports: Hx Fractures - LEFT wrist Infectious Medical History: Reports: None Past Surgical History: Reports: Hx Appendectomy - incidental with open cholecystectomy 1986, Hx Cardiac Catheterization, Hx Section - 2001, Hx Cholecystectomy - open 1986, Hx Hysterectomy, Hx Neurologic Surgery, Hx Orthopedic Surgery - left knee replacement, left arm / nik. Denies: Hx Bowel Surgery, Hx Mastectomy, Hx Tonsillectomy, Hx Tubal Ligation Physical Exam - General General appearance: Appears well, Alert In distress: None Notes: PHYSICAL EXAMINATION: GENERAL: Well-appearing and in no acute distress. HEAD: Atraumatic, normocephalic. EYES: sclera anicteric, conjunctiva are normal. ENT: nares patent. Moist mucous membranes. NECK: Normal range of motion, supple without lymphadenopathy. LUNGS: No increased work of breathing. Lung sounds CTAB and equal. No wheezes rales or rhonchi. HEART: Regular rate and rhythm without murmurs. ABDOMEN: Soft, nontender, normal bowel sounds, no guarding. EXTREMITIES: Normal range of motion, no pitting edema. No cyanosis. NEUROLOGICAL: A&O x 3. Normal speech. PSYCH: Normal mood, normal affect. SKIN: Warm, Dry, normal turgor, no rashes or lesions noted Patient Education/Counseling Counseling/Education: Patient presents with symptoms associated with possible Covid 19 infection. Patient does not have emergency worrying symptoms such as difficulty breathing, shortness of breath, chest pain, pressure, confusion or cyanosis. Patient appears suitable for discharge as vital signs are stable and patient is nontoxic in appearance. Good return precautions have been discussed with patient, patient verbalized understanding and is agreeable with discharge plan of care at this time. Guidance for worsening S/SX: As a person under investigation for Covid 19, the [facility], division of public health advises you to adhere to the following guidance until your test results are reported to you. If your test result is positive, you will receive additional information from your provider and your local health department at that time. Remain at home until you are cleared by the health provider or public health authorities. Keep a log of visitors to your home, notify any visitors to your home of your isolation status. If you plan to move to a new address or leave the county, notify the local health department in your County. Call your doctor or seek care if you have an urgent medical need. Before seeking medical care, call ahead to get instructions from the provider before arriving at the medical office clinic or hospital. Notify them that you are being tested for the virus that causes Covid 19 so that arrangements can be made, as necessary, to prevent transmission to others in the healthcare setting. Next, notify the local health department in your county. If a medical emergency arises and you need to call 911, inform the first responders that you are being tested for the virus that causes Covid 19. Next, notify the local health department in your county. RDC Discharge - Discharge Clinical Impression: Encounter for screening laboratory testing for COVID-19 virus Condition: Good Disposition: Home; Selfcare
[2020-03-07 10:02] VITALS: BP 124/94
== END ==
LOC: RDC 09:04
PROVIDERS: ATTEND Registered Nurse
DX: Z20.828 Contact with and (suspected) exposure to other viral communicable diseases (principal); I50.9 Heart failure, unspecified; I11.0 Hypertensive heart disease with heart failure; J44.9 Chronic obstructive pulmonary disease, unspecified; E03.9 Hypothyroidism, unspecified; K21.9 Gastro-esophageal reflux disease without esophagitis; F90.9 Attention-deficit hyperactivity disorder, unspecified type
CPT/HCPCS: 99201; U0003; G0463; C9803; 87635; 99211

== ENCOUNTER → 2020-03-20 | Outpatient (CLI) | payer MEDICARE, MEDICAID ==
[2020-03-20 11:02] VITALS: BP 133/76
--- NOTE | 2020-03-20 11:02 | ER RDC ASSESSMENT REPORT ---
Intake - In the Last 14 days Have you traveled outside [place]?: No Have you been in close contact with someone CONFIRMED: No Worked in Healthcare?: No - Symptoms Subjective Fever([place] feverish): No Chills: No Muscule Aches: No Runny Nose: No Sore Throat: No Cough (New or worsening chronic cough): No Shortness of breath: No Nausea or Vomiting: Yes Headache: No Abdominal Pain: No Diarrhea(3 or more loose stools in last 24 hours): Yes - Do you have any of the following Chronic lung disease: Asthma or emphysema or COPD: Yes Cystic Fibrosis: No Diabetes: No High Blood Pressure: Yes Cardiovascular Disease: Yes Chronic Kidney Disease: No Chronic Liver Disease: No Chronic blood disorder like Sickle Cell Disease: No Weak immune system due to disease or medication: No Neurologic condition that limits movement: No Developmental delay - Moderate to Severe: No Recent (within past 2 weeks) or current : No - Objective Temperature: 98.2 F Pulse Rate: 67 Respiratory Rate: 14 Blood Pressure: 133/76 O2 Sat by Pulse Oximetry: 95 Objective: Given above, testing performed: covid Disposition: Home; Selfcare General - General Stated Complaint: diarrhea Time Seen by Provider: 03/20/20 10:00 Mode of Arrival: Ambulatory Information source: Patient - HPI Notes: 59-year-old female presents to [facility] clinic for COVID-19 testing. Patient reports no known contact with Covid positive individual. Onset of symptoms 03/16/2020. She is complaining of frequent episodes of diarrhea that continued up until yesterday and nausea. Patient states she has not had any diarrhea today but the nausea is persistent. Denies any fever, chills, muscle aches, runny nose, sore throat or cough, shortness of breath, headache or abdominal pain. - Related Data Allergies/Adverse Reactions: codeine [Codeine] Allergy (Severe, Verified 02/22/19 18:38) Facial/airway swelling, SOB, rash Sulfa (Sulfonamide Antibiotics) Allergy (Severe, Verified 02/22/19 18:38) Facial/airway swelling, SOB, rash hydrocodone [Hydrocodone] Allergy (Verified 02/22/19 18:38) oxycodone [Oxycodone] Allergy (Verified 02/22/19 18:38) Past Medical History - General Information source: Patient - Social History Smoking Status: Former Smoker Family History: Reviewed & Not Pertinent, Thyroid Disfunction - Mother - Past Medical History Cardiac Medical History: Reports: Hx Congestive Heart Failure - hospitalized x 2 (Mar 2011 & May 2011), Hx Hypertension Denies: Hx Atrial Fibrillation, Hx Heart Attack, Hx Hypercholesterolemia Pulmonary Medical History: Reports: Hx COPD, Hx Pneumonia - hospitalized x 2, Hx Sleep Apnea Denies: Hx Asthma, Hx Bronchitis, Hx Tuberculosis EENT Medical History: Reports: None Neurological Medical History: Reports: Hx Migraine, Hx Seizures - prior to cerebral aneurysm clipping only. Denies: Hx Parkinson's Disease Endocrine Medical History: Reports: Hx Hypothyroidism Renal/ Medical History: Reports: Hx Kidney Stones - "passed" x 3-4 renal calculi (2006). Denies: Hx End Stage Renal Disease, Hx Peritoneal Dialysis Malignancy Medical History: Reports: None GI Medical History: Reports: Hx Gastritis, Hx Gastroesophageal Reflux Disease, Hx Irritable Bowel, Hx Colonoscopy, Hx Endoscopy. Denies: Hx Hiatal Hernia, Hx Ulcer Musculoskeletal Medical History: Reports Hx Arthritis, Reports Hx Musculoskeletal Deformity, Reports Hx Musculoskeletal Trauma, Denies Hx Systemic Lupus Erythematosus Skin Medical History: Reports None Psychiatric Medical History: Reports: Hx Anxiety, Hx Attention Deficit Hyperactivity Disorder, Hx Bipolar Disorder, Hx Depression Denies: Hx Schizophrenia Traumatic Medical History: Reports: Hx Fractures - LEFT wrist Infectious Medical History: Reports: None Past Surgical History: Reports: Hx Appendectomy - incidental with open cholecystectomy 1986, Hx Cardiac Catheterization, Hx Section - 2001, Hx Cholecystectomy - open 1986, Hx Hysterectomy, Hx Neurologic Surgery, Hx Orthopedic Surgery - left knee replacement, left arm / nik. Denies: Hx Bowel Surgery, Hx Mastectomy, Hx Tonsillectomy, Hx Tubal Ligation Physical Exam - General General appearance: Appears well, Alert In distress: None Notes: PHYSICAL EXAMINATION: GENERAL: Well-appearing and in no acute distress. HEAD: Atraumatic, normocephalic. EYES: sclera anicteric, conjunctiva are normal. ENT: nares patent. Moist mucous membranes. NECK: Normal range of motion, supple without lymphadenopathy. LUNGS: No increased work of breathing. Lung sounds CTAB and equal, diminished in bases. No wheezes rales or rhonchi. HEART: Regular rate and rhythm without murmurs. ABDOMEN: Soft, nontender, normal bowel sounds, no guarding. EXTREMITIES: Normal range of motion, no pitting edema. No cyanosis. NEUROLOGICAL: A&O x 3. Normal speech. PSYCH: Normal mood, normal affect. SKIN: Warm, Dry, normal turgor, no rashes or lesions noted Patient Education/Counseling Counseling/Education: Patient presents with symptoms associated with possible Covid 19 infection. Patient does not have emergency worrying symptoms such as difficulty breathing, shortness of breath, chest pain, pressure, confusion or cyanosis. Patient appears suitable for discharge as vital signs are stable and patient is nontoxic in appearance. Good return precautions have been discussed with patient, patient verbalized understanding and is agreeable with discharge plan of care at this time. Guidance for worsening S/SX: As a person under investigation for Covid 19, the [place] department of Health and Human Services, division of public health advises you to adhere to th e following guidance until your test results are reported to you. If your test result is positive, you will receive additional information from your provider and your local health department at that time. Remain at home until you are cleared by the health provider or public health authorities. Keep a log of visitors to your home, notify any visitors to your home of your isolation status. If you plan to move to a new address or leave the county, notify the local health department in your County. Call your doctor or seek care if you have an urgent medical need. Before seeking medical care, call ahead to get instructions from the provider before arriving at the medical office clinic or hospital. Notify them that you are being tested for the virus that causes Covid 19 so that arrangements can be made, as necessary, to prevent transmission to others in the healthcare setting. Next, notify the local health department in your county. If a medical emergency arises and you need to call 911, inform the first responders that you are being tested for the virus that causes Covid 19. Next, notify the local health department in your county. RDC Discharge - Discharge Clinical Impression: Encounter for screening laboratory testing for COVID-19 virus Condition: Good Disposition: Home; Selfcare
== END ==
LOC: RDC 09:40
PROVIDERS: ATTEND Registered Nurse
DX: Z20.828 Contact with and (suspected) exposure to other viral communicable diseases (principal); R11.0 Nausea; R19.7 Diarrhea, unspecified; I10 Essential (primary) hypertension; I25.10 Atherosclerotic heart disease of native coronary artery without angina pectoris; J44.9 Chronic obstructive pulmonary disease, unspecified; Z88.1 Allergy status to other antibiotic agents; Z88.6 Allergy status to analgesic agent
CPT/HCPCS: 99211; U0003; G0463; C9803; 87635

== ENCOUNTER → 2020-04-20 | Outpatient (CLI) | payer MEDICARE, MEDICAID ==
--- NOTE | 2020-04-20 16:37 | RADIOLOGY REPORT (SQ) ---
EXAM DESCRIPTION: CHEST 2 VIEWS IMAGES COMPLETED DATE/TIME: 04/20/2020 4:07 pm REASON FOR STUDY: (E66.01)MORBID (SEVERE) OBESITY DUE TO EXCESS CALORIES COMPARISON: PA view of the chest from 09/04/2019. EXAM PARAMETERS: NUMBER OF VIEWS: Two views. TECHNIQUE: PA and lateral views of the chest were obtained. RADIATION DOSE: NA LIMITATIONS: None. FINDINGS: LUNGS AND PLEURA: No consolidation, pleural effusion or pneumothorax. MEDIASTINUM AND HILAR STRUCTURES: No mediastinal or hilar contour abnormality. HEART AND VASCULAR STRUCTURES: The cardiac silhouette is mildly enlarged. BONES: No acute findings. HARDWARE: Cholecystectomy clips. OTHER: No other finding. IMPRESSION: No acute cardiopulmonary process. TECHNICAL DOCUMENTATION: JOB ID: [id number] 2010 [employer]- All Rights Reserved Reading location - IP/workstation name: [email or web address]
== END ==
LOC: RAD 15:56
PROVIDERS: ATTEND Surgery
DX: Z01.810 Encounter for preprocedural cardiovascular examination (principal); Z01.818 Encounter for other preprocedural examination; E66.01 Morbid (severe) obesity due to excess calories; E78.5 Hyperlipidemia, unspecified; I10 Essential (primary) hypertension
CPT/HCPCS: 71046; 80048; 84443; 85025